=== PATIENT | female | born 1990 | race Caucasian/White ===

== ENCOUNTER 2017-07-26 23:22 | Emergency (ER) | payer MEDICAID ==
[~2017-07-26] VITALS: Ht 175.3 cm; Wt 57.4 kg
[2017-07-26 23:24] VITALS: BP 135/90
[2017-07-27] MEDS ORDERED: SULFAMETH./TRIMETHOPRIM DS 800MG/160MG TABLET ONE (00:11)
[2017-07-27] MEDS ORDERED: ACETAMINOPHEN 325 MG TABLET ONE (00:11)
[2017-07-27] MEDS ORDERED: SULFAMETH./TRIMETHOPRIM DS 800MG/160MG TABLET PO ONE (00:30)
[2017-07-27] MEDS ORDERED: ACETAMINOPHEN 325 MG TABLET PO ONE (00:30)
== END 2017-07-27 00:23 | disposition home or self-care (01) ==
LOC: ED 07-27 00:17
DX: L02.01 Cutaneous abscess of face (principal)
CPT/HCPCS: 99283

== ENCOUNTER 2017-09-28 19:00 | Emergency (ER) | payer MEDICAID ==
[~2017-09-28] VITALS: Ht 162.6 cm; Wt 55.0 kg
[2017-09-28] MEDS ORDERED: NALOXONE 0.4 MG/ML, 1ML ONE (19:19)
[2017-09-28] MEDS ORDERED: SODIUM CHLORIDE FLUSH 10ML SYR IVF ONE (19:30)
[2017-09-28] MEDS ORDERED: NALOXONE 0.4 MG/ML, 1ML IVPush PRN ×2 (19:30→20:00)
[2017-09-29 01:37] VITALS: BP 114/73
== END 2017-09-29 01:39 | disposition home or self-care (01) ==
LOC: ED 22:12
DX: F10.129 Alcohol abuse with intoxication, unspecified (principal); F11.129 Opioid abuse with intoxication, unspecified
CPT/HCPCS: 96374; 99284; J2310

== ENCOUNTER 2017-10-28 01:37 | Emergency (ER) | payer MEDICAID ==
[~2017-10-28] VITALS: Ht 175.3 cm; Wt 55.5 kg
[2017-10-28 01:39] VITALS: BP 121/77
== END 2017-10-28 02:57 | disposition home or self-care (01) ==
LOC: ED 02:55
DX: L02.01 Cutaneous abscess of face (principal); F17.210 Nicotine dependence, cigarettes, uncomplicated
CPT/HCPCS: 99283

== ENCOUNTER 2018-02-12 13:36 | Emergency (ER) | payer SELFPAY ==
[~2018-02-12] VITALS: Ht 180.3 cm; Wt 52.0 kg
[2018-02-12] MEDS ORDERED: LIDOCAINE-MPF 1%, 5ML INFIL ONE (14:00)
[2018-02-12] MEDS ORDERED: AMPICILLIN/SULBACTAM 3 GM in SODIUM CHLORIDE 0.9% 100 ML IV ONE (15:30)
[2018-02-12 15:41] LABS: BASOPHILS # (AUTO) 0.06 x10^3/uL (0-0.1); BASOPHILS % (AUTO) 0 % (0-1); EOSINOPHILS # (AUTO) 0.36 x10^3/uL (0-0.4); EOSINOPHILS % (AUTO) 3 % (1-7); LYMPHOCYTES % (AUTO) 17 % (22-44); MD NO; MEAN CORPUSCULAR HEMOGLOBIN 29.2 pg (27.0-34.8); MEAN CORPUSCULAR HGB CONC 33.4 g/dL (32.4-35.8); MEAN CORPUSCULAR VOLUME 87.6 fL (80-100); MEAN PLATELET VOLUME 7.1 fL (7.4-10.4); MONOCYTES # (AUTO) 0.63 x10^3/uL (0.2-0.8); MONOCYTES % (AUTO) 5 % (2-9); NEUTROPHILS # (AUTO) 9.99 x10^3/uL (1.8-6.8); NEUTROPHILS % (AUTO) 75 % (42-75); PLATELET COUNT 291 x10^3/uL (130-400); RED CELL DISTRIBUTION WIDTH 13.4 % (9.6-15.2)
[2018-02-12 15:52] LABS: ALBUMIN 3.8 g/dL (3.4-5.0); ANION GAP 6 mmol/L (5-15); CALCIUM 9.3 mg/dL (8.5-10.1); CHLORIDE 100 mmol/L (98-107); CREATININE 0.76 mg/dL (0.55-1.02)
[2018-02-12] MEDS ORDERED: LIDOCAINE-MPF 1%, 2ML ONE (17:30)
[2018-02-12 18:17] VITALS: BP 153/91
== END 2018-02-12 18:35 | disposition home or self-care (01) ==
LOC: ED 16:15
DX: L02.01 Cutaneous abscess of face (principal); F17.200 Nicotine dependence, unspecified, uncomplicated
CPT/HCPCS: 36415; 80048; 82040; 85025; 87070; 87077; 87186; 87205; 96365; 99284; J0295

== ENCOUNTER 2018-02-16 04:13 | Emergency (ER) | payer SELFPAY ==
[~2018-02-16] VITALS: Ht 175.3 cm; Wt 53.4 kg
[2018-02-16 04:28] VITALS: BP 133/88
[2018-02-16] MEDS ORDERED: CEFTRIAXONE 1,000 MG ONE (05:08)
[2018-02-16] MEDS ORDERED: CEFTRIAXONE 1,000 MG IM ONE (05:30)
== END 2018-02-16 06:56 | disposition home or self-care (01) ==
LOC: ED 05:42
DX: L02.01 Cutaneous abscess of face (principal)
CPT/HCPCS: 73130; 96372; 99284; J0696

== ENCOUNTER 2018-04-11 23:09 | Inpatient (IN) | payer MEDICAID ==
[~2018-04-11] VITALS: Ht 175.3 cm; Wt 60.8 kg
[2018-04-11] MEDS ORDERED: HYDROmorphone 1 MG/ML, 1ML IV ONE (23:30)
[2018-04-11] MEDS ORDERED: SODIUM CHLORIDE 0.9% 1,000ML IVBOLUS ONE (23:30)
[2018-04-11 23:55] LABS: MEAN CORPUSCULAR HEMOGLOBIN 29.2 pg (27.0-34.8); MEAN CORPUSCULAR HGB CONC 33.6 g/dL (32.4-35.8); MEAN CORPUSCULAR VOLUME 87.1 fL (80-100); MEAN PLATELET VOLUME 7.4 fL (7.4-10.4); PLATELET COUNT 343 x10^3/uL (130-400); RED BLOOD COUNT 3.86 x10^6/uL (3.82-5.3); RED CELL DISTRIBUTION WIDTH 13.7 % (9.6-15.2)
[2018-04-12] MEDS ORDERED: VANCOMYCIN PER PHARMACY IV ONE
[2018-04-12] MEDS ORDERED: PIPERACILLIN/TAZO/PMX 3.375GM 50 ML IVPB ONE
[2018-04-12 00:06] LABS: CULTURE INDICATED? YES; MICROSCOPIC INDICATED
[2018-04-12 00:08] LABS: ALANINE AMINOTRANSFERASE 76 U/L (12-78); ALBUMIN 2.5 g/dL (3.4-5.0); ANION GAP 10 mmol/L (5-15); CHLORIDE 95 mmol/L (98-107); CREATININE 0.56 mg/dL (0.55-1.02)
[2018-04-12 00:09] LABS: ALKALINE PHOSPHATASE 159 U/L (45-117); BASOPHILS # (AUTO) 0.02 x10^3/uL (0-0.1); BASOPHILS % (AUTO) 0 % (0-1); BILIRUBIN,TOTAL 0.7 mg/dL (0.2-1.0); EOSINOPHILS % (AUTO) 0 % (1-7); LYMPHOCYTES # (AUTO) 1.69 x10^3/uL (1-3.4); LYMPHOCYTES % (AUTO) 8 % (22-44); MD SCAN; MONOCYTES # (AUTO) 1.16 x10^3/uL (0.2-0.8); MONOCYTES % (AUTO) 5 % (2-9); NEUTROPHILS # (AUTO) 19.01 x10^3/uL (1.8-6.8); NEUTROPHILS % (AUTO) 87 % (42-75); TOTAL PROTEIN 7.8 g/dL (6.4-8.2)
[2018-04-12] MEDS ORDERED: PIPERACILLIN/TAZO/PMX 3.375GM 50 ML ONE (00:09)
[2018-04-12 00:20] LABS: HCG UR SG 1.026 (1.003-1.030)
[2018-04-12] MEDS ORDERED: HYDROmorphone 2 MG/ML, 1ML ONE ×4 (00:27→03:59)
[2018-04-12] MEDS ORDERED: VANCOMYCIN 1,100 MG in SODIUM CHLORIDE 0.9% 250 ML IV ONE (00:30)
[2018-04-12] MEDS ORDERED: SODIUM CHLORIDE 0.9% 1,000ML IVBOLUS ONE (01:00)
[2018-04-12] MEDS ORDERED: LIDOCAINE-MPF 1%, 5ML INFIL ONE (01:00)
[2018-04-12 01:07] LABS: HCT (SEDRATE) 33.6 % (34.6-47.8)
[2018-04-12] MEDS ORDERED: LIDOCAINE-MPF 2%, 2ML ONE (01:13)
[2018-04-12] MEDS ORDERED: HYDROmorphone 1 MG/ML, 1ML IV ONE ×3 (02:30→04:00)
[2018-04-12] MEDS: SODIUM CHLORIDE 0.9% 1,000 ML IV SCH ×4 (02:55→23:38)
[2018-04-12] MEDS ORDERED: ONDANSETRON ODT 4 MG PO PRN (03:00)
[2018-04-12] MEDS ORDERED: VANCOMYCIN PER PHARMACY MC PRN (03:00)
[2018-04-12] MEDS ORDERED: PROMETHAZINE 25 MG/ML, 1ML IM PRN (03:00)
[2018-04-12] MEDS: HEPARIN 5,000 UNITS/ML, 1ML SQ SCH ×3 (03:00→19:00)
[2018-04-12] MEDS: PIPERACILLIN/TAZO/PMX 3.375GM 50 ML IV SCH ×4 (03:00→20:49)
[2018-04-12] MEDS ORDERED: hydrALAzine 20 MG/ML, 1ML IVPush PRN (03:00)
[2018-04-12] MEDS ORDERED: ONDANSETRON 2MG/ML, 2ML IVPush PRN (03:00)
[2018-04-12] MEDS ORDERED: POLYETHYLENE GLYCOL 17 GM PACKET PO PRN (03:00)
[2018-04-12 04:00] VITALS: BP 110/60
[2018-04-12] MEDS ORDERED: KETOROLAC 30 MG/1 ML ONE (04:04)
[2018-04-12] MEDS ORDERED: KETOROLAC 30 MG/1 ML IVPush ONE (04:30)
[2018-04-12] MEDS ORDERED: GADOBUTROL 7.5 MMOL/7.5 ML PFS ONE (04:48)
[2018-04-12 05:58] VITALS: BP 113/91
[2018-04-12] MEDS ORDERED: PHARMACOKINETIC CONSULTATION MC ONE (06:00)
[2018-04-12] MEDS ORDERED: PHARMACOKINETIC MONITORING MC PRN (06:00)
[2018-04-12 06:34] VITALS: BP 110/60
[2018-04-12] MEDS ORDERED: METHYLENE BLUE 10 MG/ML 10ML ONE (08:25)
[2018-04-12] MEDS ORDERED: methylPREDNISolone *ACETATE* 40 MG/ML ONE (08:25)
[2018-04-12] MEDS ORDERED: BUPIVACAINE/PF-EPI 0.5% 1:200K ONE (08:25)
[2018-04-12] MEDS ORDERED: THROMBIN 5,000 UNIT VIAL TP ONE (08:25)
[2018-04-12] MEDS ORDERED: BACITRACIN OINT 500U/GM, 15 GM ONE (08:25)
[2018-04-12] MEDS ORDERED: BACITRACIN 50,000 UNIT ONE (08:26)
[2018-04-12] MEDS ORDERED: FENTANYL PF 250 MCG/5ML ONE ×2 (08:37→10:01)
[2018-04-12] MEDS ORDERED: MIDAZOLAM 1 MG/ML, 2ML ONE (08:37)
[2018-04-12] MEDS ORDERED: VANCOMYCIN 1,000 MG ONE (09:32)
[2018-04-12] MEDS ORDERED: VASOPRESSIN 20 UNIT/ML, 1ML ONE (10:03)
[2018-04-12] MEDS ORDERED: SUCCINYLCHOLINE 20 MG/ML, 10ML ONE (10:03)
[2018-04-12] MEDS ORDERED: PHENYLEPHRINE 10 MG/ML ONE (10:03)
[2018-04-12] MEDS ORDERED: ROCURONIUM 10MG/ML,5ML ONE (10:03)
[2018-04-12] MEDS ORDERED: LIDOCAINE JELLY 2%, 30GM ONE (10:03)
[2018-04-12] MEDS ORDERED: PROPOFOL 10 MG/ML, 20ML ONE (10:03)
[2018-04-12] MEDS ORDERED: ACETAMINOPHEN 325 MG TABLET PO PRN (12:00)
[2018-04-12] MEDS ORDERED: OXYcodone 5 MG/5 ML ORAL.SOL UDC PO PRN (12:00)
[2018-04-12] MEDS ORDERED: ONDANSETRON 2MG/ML, 2ML IV PRN (12:00)
[2018-04-12] MEDS ORDERED: hydrALAzine 20 MG/ML, 1ML IV PRN (12:00)
[2018-04-12] MEDS ORDERED: FENTANYL PF 100 MCG/2ML IV PRN (12:00)
[2018-04-12] MEDS ORDERED: EPHEDRINE 50 MG/ML, 1ML IVPush PRN (12:00)
[2018-04-12] MEDS ORDERED: ALBUTEROL SULFATE 2.5 MG/3 ML NPPB PRN (12:00)
[2018-04-12] MEDS ORDERED: PROMETHAZINE 25 MG/ML, 1ML IV PRN (12:00)
[2018-04-12] MEDS ORDERED: EPHEDRINE 50 MG/ML, 1ML IM PRN (12:00)
[2018-04-12] MEDS ORDERED: ONDANSETRON ODT 8 MG PO PRN (12:00)
[2018-04-12] MEDS ORDERED: LABETALOL 5MG/ML, 20ML IV PRN (12:00)
[2018-04-12] MEDS ORDERED: HALOPERIDOL 5 MG/ML IV PRN (12:00)
[2018-04-12] MEDS ORDERED: PROMETHAZINE 12.5 MG SUPP PR PRN (12:00)
[2018-04-12] MEDS ORDERED: LORazepam 2 MG/ML, 1ML IVPush PRN (12:00)
[2018-04-12] MEDS ORDERED: HYDROmorphone 2 MG/ML, 1ML IV PRN (12:00)
[2018-04-12] MEDS ORDERED: MEPERIDINE/PF 25MG/0.5ML IVPush PRN (12:00)
[2018-04-12] MEDS ORDERED: MIDAZOLAM 1 MG/ML, 2ML IV PRN (12:00)
[2018-04-12] MEDS: VANCOMYCIN 1,100 MG in SODIUM CHLORIDE 0.9% 250 ML IV SCH (13:31)
[2018-04-12] MEDS: OXYcodone/APAP 5/325MG TABLET PO PRN ×2 (15:38→18:26)
[2018-04-12] MEDS: KETOROLAC 30 MG/1 ML IV PRN (23:37)
[2018-04-12] MEDS: NICOTINE 14MG/24 HR PATCH.TD24 TD SCH (23:41)
[2018-04-13] MEDS: VANCOMYCIN 1,100 MG in SODIUM CHLORIDE 0.9% 250 ML IV SCH (00:36)
[2018-04-13] MEDS: OXYcodone/APAP 5/325MG TABLET PO PRN ×5 (01:51→21:01)
[2018-04-13] MEDS: ACETAMINOPHEN 325 MG TABLET PO PRN ×3 (03:24→19:57)
[2018-04-13] MEDS: HEPARIN 5,000 UNITS/ML, 1ML SQ SCH (03:28)
[2018-04-13] MEDS: PIPERACILLIN/TAZO/PMX 3.375GM 50 ML IV SCH ×2 (03:28→09:17)
[2018-04-13 04:00] VITALS: BP 116/94
[2018-04-13 04:35] LABS: ALANINE AMINOTRANSFERASE 59 U/L (12-78); ALBUMIN 1.8 g/dL (3.4-5.0); ANION GAP 9 mmol/L (5-15); CALCIUM 7.3 mg/dL (8.5-10.1); CHLORIDE 106 mmol/L (98-107); CREATININE 0.51 mg/dL (0.55-1.02)
[2018-04-13 04:37] LABS: ALKALINE PHOSPHATASE 152 U/L (45-117); BILIRUBIN,TOTAL 0.3 mg/dL (0.2-1.0); TOTAL PROTEIN 6.4 g/dL (6.4-8.2)
[2018-04-13 04:44] LABS: MEAN CORPUSCULAR HGB CONC 33.1 g/dL (32.4-35.8); MEAN CORPUSCULAR VOLUME 87.7 fL (80-100); MEAN PLATELET VOLUME 7.4 fL (7.4-10.4); PLATELET COUNT 379 x10^3/uL (130-400); RED BLOOD COUNT 3.48 x10^6/uL (3.82-5.3); RED CELL DISTRIBUTION WIDTH 14.8 % (9.6-15.2)
[2018-04-13] MEDS: KETOROLAC 30 MG/1 ML IV PRN ×3 (05:32→22:11)
[2018-04-13 05:48] LABS: BASOPHILS # (AUTO) 0.03 x10^3/uL (0-0.1); BASOPHILS % (AUTO) 0 % (0-1); EOSINOPHILS % (AUTO) 0 % (1-7); LYMPHOCYTES # (AUTO) 1.77 x10^3/uL (1-3.4); LYMPHOCYTES % (AUTO) 9 % (22-44); MD SCAN; MONOCYTES # (AUTO) 0.98 x10^3/uL (0.2-0.8); MONOCYTES % (AUTO) 5 % (2-9); NEUTROPHILS % (AUTO) 86 % (42-75)
[2018-04-13] MEDS: SODIUM CHLORIDE 0.9% 1,000 ML IV SCH ×2 (10:27→18:32)
[2018-04-13] MEDS: TIZANIDINE 4MG TABLET PO PRN ×2 (10:28→18:32)
[2018-04-13] MEDS: CEFAZOLIN PMX 2GM/50ML 50 ML IV SCH ×2 (12:22→19:57)
[2018-04-14] MEDS: NICOTINE 14MG/24 HR PATCH.TD24 TD SCH (00:24)
[2018-04-14] MEDS: TIZANIDINE 4MG TABLET PO PRN ×3 (00:25→20:15)
[2018-04-14] MEDS: OXYcodone/APAP 5/325MG TABLET PO PRN ×2 (01:40→06:05)
[2018-04-14] MEDS: CEFAZOLIN PMX 2GM/50ML 50 ML IV SCH ×3 (03:03→20:06)
[2018-04-14] MEDS: SODIUM CHLORIDE 0.9% 1,000 ML IV SCH (03:03)
[2018-04-14] MEDS: KETOROLAC 30 MG/1 ML IV PRN ×2 (04:21→11:49)
[2018-04-14] MEDS ORDERED: LORazepam 0.5MG TABLET PO ONE ×2 (04:30→06:00)
[2018-04-14 04:44] LABS: HCT (SEDRATE) 29.7 % (34.6-47.8)
[2018-04-14 04:55] LABS: ALANINE AMINOTRANSFERASE 46 U/L (12-78); ALBUMIN 1.7 g/dL (3.4-5.0); ANION GAP 8 mmol/L (5-15); CALCIUM 7.6 mg/dL (8.5-10.1); CHLORIDE 105 mmol/L (98-107); CREATININE 0.45 mg/dL (0.55-1.02)
[2018-04-14 04:56] LABS: BASOPHILS # (AUTO) 0.02 x10^3/uL (0-0.1); BASOPHILS % (AUTO) 0 % (0-1); EOSINOPHILS # (AUTO) 0.09 x10^3/uL (0-0.4); EOSINOPHILS % (AUTO) 1 % (1-7); LYMPHOCYTES # (AUTO) 3.08 x10^3/uL (1-3.4); LYMPHOCYTES % (AUTO) 24 % (22-44); MD NO; MEAN CORPUSCULAR HEMOGLOBIN 28.6 pg (27.0-34.8); MEAN CORPUSCULAR HGB CONC 32.9 g/dL (32.4-35.8); MEAN CORPUSCULAR VOLUME 86.8 fL (80-100); MONOCYTES % (AUTO) 6 % (2-9); NEUTROPHILS # (AUTO) 9.08 x10^3/uL (1.8-6.8); NEUTROPHILS % (AUTO) 70 % (42-75); PLATELET COUNT 395 x10^3/uL (130-400); RED BLOOD COUNT 3.41 x10^6/uL (3.82-5.3); RED CELL DISTRIBUTION WIDTH 14.4 % (9.6-15.2)
[2018-04-14 05:02] LABS: ALKALINE PHOSPHATASE 113 U/L (45-117); BILIRUBIN,TOTAL 0.1 mg/dL (0.2-1.0); TOTAL PROTEIN 6.1 g/dL (6.4-8.2)
[2018-04-14 06:37] VITALS: BP 137/74
[2018-04-14] MEDS: OXYcodone IR 5MG TABLET PO PRN ×4 (09:44→23:03)
[2018-04-14 10:42] VITALS: BP 133/79
[2018-04-14 19:36] VITALS: BP 139/84
[2018-04-15] MEDS: KETOROLAC 30 MG/1 ML IV PRN ×4 (00:14→21:10)
[2018-04-15] MEDS: TIZANIDINE 4MG TABLET PO PRN ×4 (01:42→21:26)
[2018-04-15] MEDS: NICOTINE 14MG/24 HR PATCH.TD24 TD SCH (01:42)
[2018-04-15 03:06] VITALS: BP 132/77
[2018-04-15] MEDS: CEFAZOLIN PMX 2GM/50ML 50 ML IV SCH ×3 (04:22→20:32)
[2018-04-15] MEDS: OXYcodone IR 5MG TABLET PO PRN ×5 (04:22→21:27)
[2018-04-15 05:43] LABS: BASOPHILS # (AUTO) 0.05 x10^3/uL (0-0.1); BASOPHILS % (AUTO) 0 % (0-1); EOSINOPHILS # (AUTO) 0.12 x10^3/uL (0-0.4); EOSINOPHILS % (AUTO) 1 % (1-7); LYMPHOCYTES # (AUTO) 3.58 x10^3/uL (1-3.4); LYMPHOCYTES % (AUTO) 25 % (22-44); MD NO; MEAN CORPUSCULAR HEMOGLOBIN 29.4 pg (27.0-34.8); MEAN CORPUSCULAR VOLUME 86.6 fL (80-100); MEAN PLATELET VOLUME 6.6 fL (7.4-10.4); MONOCYTES # (AUTO) 1.06 x10^3/uL (0.2-0.8); MONOCYTES % (AUTO) 7 % (2-9); NEUTROPHILS # (AUTO) 9.46 x10^3/uL (1.8-6.8); NEUTROPHILS % (AUTO) 66 % (42-75); PLATELET COUNT 484 x10^3/uL (130-400); RED BLOOD COUNT 3.77 x10^6/uL (3.82-5.3)
[2018-04-15 08:00] VITALS: BP 150/89
[2018-04-15] MEDS: METHADONE 10 MG TABLET PO SCH ×3 (14:20→22:35)
[2018-04-15 15:02] VITALS: BP 151/71
[2018-04-15 20:05] VITALS: BP 121/71
[2018-04-16] MEDS: NICOTINE 14MG/24 HR PATCH.TD24 TD SCH (01:57)
[2018-04-16 01:58] VITALS: BP 114/70
[2018-04-16] MEDS: OXYcodone IR 5MG TABLET PO PRN ×3 (02:04→14:23)
[2018-04-16] MEDS: CEFAZOLIN PMX 2GM/50ML 50 ML IV SCH ×3 (04:07→22:01)
[2018-04-16] MEDS: KETOROLAC 30 MG/1 ML IV PRN ×3 (05:34→18:05)
[2018-04-16] MEDS: TIZANIDINE 4MG TABLET PO PRN ×3 (05:34→18:05)
[2018-04-16 08:53] VITALS: BP 99/70
[2018-04-16] MEDS: METHADONE 10 MG TABLET PO SCH ×3 (09:36→22:01)
[2018-04-16 14:51] VITALS: BP 107/64
[2018-04-16 19:24] VITALS: BP 113/70
[2018-04-17] MEDS: NICOTINE 14MG/24 HR PATCH.TD24 TD SCH (01:36)
[2018-04-17 02:30] VITALS: BP 120/86
[2018-04-17 05:03] LABS: CHLORIDE 100 mmol/L (98-107)
[2018-04-17] MEDS: TIZANIDINE 4MG TABLET PO PRN ×3 (05:05→18:48)
[2018-04-17] MEDS: OXYcodone IR 5MG TABLET PO PRN ×3 (05:05→18:48)
[2018-04-17 05:11] LABS: ALANINE AMINOTRANSFERASE 60 U/L (12-78); ALKALINE PHOSPHATASE 117 U/L (45-117); ANION GAP 8 mmol/L (5-15); BILIRUBIN,TOTAL 0.2 mg/dL (0.2-1.0); CALCIUM 8.4 mg/dL (8.5-10.1); CREATININE 0.54 mg/dL (0.55-1.02); TOTAL PROTEIN 7.5 g/dL (6.4-8.2)
[2018-04-17 05:16] LABS: BASOPHILS # (AUTO) 0.06 x10^3/uL (0-0.1); BASOPHILS % (AUTO) 0 % (0-1); EOSINOPHILS # (AUTO) 0.44 x10^3/uL (0-0.4); EOSINOPHILS % (AUTO) 3 % (1-7); LYMPHOCYTES # (AUTO) 3.63 x10^3/uL (1-3.4); LYMPHOCYTES % (AUTO) 25 % (22-44); MD NO; MEAN CORPUSCULAR HEMOGLOBIN 28.3 pg (27.0-34.8); MEAN CORPUSCULAR HGB CONC 32.8 g/dL (32.4-35.8); MEAN CORPUSCULAR VOLUME 86.3 fL (80-100); MEAN PLATELET VOLUME 6.6 fL (7.4-10.4); MONOCYTES # (AUTO) 0.79 x10^3/uL (0.2-0.8); MONOCYTES % (AUTO) 5 % (2-9); NEUTROPHILS # (AUTO) 9.67 x10^3/uL (1.8-6.8); NEUTROPHILS % (AUTO) 66 % (42-75); PLATELET COUNT 599 x10^3/uL (130-400); RED BLOOD COUNT 3.81 x10^6/uL (3.82-5.3); RED CELL DISTRIBUTION WIDTH 14.6 % (9.6-15.2)
[2018-04-17] MEDS: CEFAZOLIN PMX 2GM/50ML 50 ML IV SCH ×2 (05:57→18:48)
[2018-04-17 08:00] VITALS: BP 142/85
[2018-04-17] MEDS: METHADONE 10 MG TABLET PO SCH ×3 (09:13→22:17)
[2018-04-17 20:01] VITALS: BP 131/80
[2018-04-17] MEDS: ACETAMINOPHEN 325 MG TABLET PO PRN (22:17)
[2018-04-18 01:13] VITALS: BP 110/70
[2018-04-18] MEDS: NICOTINE 14MG/24 HR PATCH.TD24 TD SCH (01:14)
[2018-04-18] MEDS: TIZANIDINE 4MG TABLET PO PRN ×3 (01:39→17:48)
[2018-04-18] MEDS: OXYcodone IR 5MG TABLET PO PRN ×4 (01:40→21:58)
[2018-04-18] MEDS: CEFAZOLIN PMX 2GM/50ML 50 ML IV SCH ×3 (03:15→18:34)
[2018-04-18 08:30] VITALS: BP 131/78
[2018-04-18] MEDS: METHADONE 10 MG TABLET PO SCH ×3 (08:49→20:40)
[2018-04-18 12:31] LABS: HCG UR SG 1.014 (1.003-1.030)
[2018-04-18] MEDS ORDERED: FENTANYL PF 250 MCG/5ML ONE (12:43)
[2018-04-18] MEDS ORDERED: MIDAZOLAM 1 MG/ML, 2ML ONE (12:43)
[2018-04-18] MEDS ORDERED: PROPOFOL 10 MG/ML, 20ML ONE (13:56)
[2018-04-18 14:30] VITALS: BP 111/76
[2018-04-18] MEDS ORDERED: MEPERIDINE/PF 50 MG/ML ONE (14:47)
[2018-04-18] MEDS ORDERED: FENTANYL PF 100 MCG/2ML ONE (14:47)
[2018-04-18] MEDS ORDERED: HYDROmorphone 2 MG/ML, 1ML ONE (14:48)
[2018-04-18] MEDS ORDERED: OXYcodone 5 MG/5 ML ORAL.SOL UDC ONE (14:48)
[2018-04-18] MEDS: HYDROmorphone 1 MG/ML, 1ML IV PRN ×2 (14:57→15:26)
[2018-04-18] MEDS ORDERED: LORazepam 2 MG/ML, 1ML IVPush PRN (15:00)
[2018-04-18] MEDS ORDERED: HALOPERIDOL 5 MG/ML IV PRN (15:00)
[2018-04-18] MEDS ORDERED: OXYcodone 5 MG/5 ML ORAL.SOL UDC PO PRN (15:00)
[2018-04-18] MEDS ORDERED: FENTANYL PF 100 MCG/2ML IV PRN (15:00)
[2018-04-18] MEDS ORDERED: MEPERIDINE/PF 25MG/0.5ML IVPush PRN (15:00)
[2018-04-18] MEDS ORDERED: PROMETHAZINE 25 MG/ML, 1ML IV PRN (15:00)
[2018-04-18] MEDS ORDERED: HALOPERIDOL 5 MG/ML ONE (15:29)
[2018-04-18 20:00] VITALS: BP 116/62
[2018-04-18] MEDS: KETOROLAC 30 MG/1 ML IVPush PRN (20:40)
[2018-04-19] MEDS: NICOTINE 14MG/24 HR PATCH.TD24 TD SCH (00:53)
[2018-04-19] MEDS: TIZANIDINE 4MG TABLET PO PRN (00:53)
[2018-04-19 01:05] VITALS: BP 119/65
[2018-04-19] MEDS: OXYcodone IR 5MG TABLET PO PRN ×5 (02:19→19:58)
[2018-04-19] MEDS: CEFAZOLIN PMX 2GM/50ML 50 ML IV SCH ×3 (03:55→19:58)
[2018-04-19] MEDS: KETOROLAC 30 MG/1 ML IVPush PRN ×3 (08:15→21:54)
[2018-04-19 08:35] VITALS: BP 106/72
[2018-04-19] MEDS: METHADONE 10 MG TABLET PO SCH ×3 (09:09→21:11)
[2018-04-19] MEDS: CYCLOBENZAPRINE 10 MG TABLET PO PRN ×2 (11:45→17:31)
[2018-04-19 12:20] VITALS: BP 104/64
[2018-04-19 20:33] VITALS: BP 121/67
[2018-04-20] MEDS: OXYcodone IR 5MG TABLET PO PRN ×3 (00:05→14:14)
[2018-04-20] MEDS: NICOTINE 14MG/24 HR PATCH.TD24 TD SCH (00:05)
[2018-04-20] MEDS: CYCLOBENZAPRINE 10 MG TABLET PO PRN ×2 (01:49→17:55)
[2018-04-20 01:51] VITALS: BP 111/70
[2018-04-20] MEDS: KETOROLAC 30 MG/1 ML IVPush PRN ×2 (03:50→11:52)
[2018-04-20] MEDS: CEFAZOLIN PMX 2GM/50ML 50 ML IV SCH ×3 (03:50→20:14)
[2018-04-20 07:59] VITALS: BP 100/57
[2018-04-20] MEDS: METHADONE 10 MG TABLET PO SCH ×3 (09:26→22:00)
[2018-04-20 13:30] VITALS: BP 109/63
[2018-04-20 21:33] VITALS: BP 113/73
[2018-04-21 02:57] VITALS: BP 113/68
[2018-04-21] MEDS: OXYcodone IR 5MG TABLET PO PRN ×4 (03:05→18:29)
[2018-04-21] MEDS: KETOROLAC 30 MG/1 ML IVPush PRN ×3 (03:38→19:29)
[2018-04-21] MEDS: CEFAZOLIN PMX 2GM/50ML 50 ML IV SCH ×3 (04:35→20:27)
[2018-04-21] MEDS: NICOTINE 14MG/24 HR PATCH.TD24 TD SCH (04:36)
[2018-04-21 05:37] LABS: BASOPHILS # (AUTO) 0.03 x10^3/uL (0-0.1); BASOPHILS % (AUTO) 0 % (0-1); EOSINOPHILS # (AUTO) 0.17 x10^3/uL (0-0.4); EOSINOPHILS % (AUTO) 2 % (1-7); LYMPHOCYTES # (AUTO) 3.32 x10^3/uL (1-3.4); LYMPHOCYTES % (AUTO) 33 % (22-44); MD NO; MEAN CORPUSCULAR HEMOGLOBIN 29.4 pg (27.0-34.8); MEAN CORPUSCULAR VOLUME 86.6 fL (80-100); MEAN PLATELET VOLUME 6.5 fL (7.4-10.4); MONOCYTES # (AUTO) 0.77 x10^3/uL (0.2-0.8); MONOCYTES % (AUTO) 8 % (2-9); NEUTROPHILS % (AUTO) 58 % (42-75); PLATELET COUNT 613 x10^3/uL (130-400); RED BLOOD COUNT 3.26 x10^6/uL (3.82-5.3); RED CELL DISTRIBUTION WIDTH 14.3 % (9.6-15.2)
[2018-04-21 05:42] LABS: CHLORIDE 96 mmol/L (98-107)
[2018-04-21 05:43] LABS: HCT (SEDRATE) 28.2 % (34.6-47.8)
[2018-04-21 05:54] LABS: ALANINE AMINOTRANSFERASE 68 U/L (12-78); ALBUMIN 2.1 g/dL (3.4-5.0); ALKALINE PHOSPHATASE 129 U/L (45-117); ANION GAP 6 mmol/L (5-15); BILIRUBIN,TOTAL 0.2 mg/dL (0.2-1.0); CALCIUM 8.6 mg/dL (8.5-10.1); TOTAL PROTEIN 7.7 g/dL (6.4-8.2)
[2018-04-21 06:03] LABS: SEDIMENTATION RATE > 120 mm/hr (0-20)
[2018-04-21 08:40] VITALS: BP 127/77
[2018-04-21] MEDS: METHADONE 10 MG TABLET PO SCH ×3 (08:56→20:28)
[2018-04-21] MEDS: CYCLOBENZAPRINE 10 MG TABLET PO PRN ×2 (12:19→20:27)
[2018-04-21 13:35] VITALS: BP 113/72
[2018-04-21] MEDS: GABAPENTIN 300 MG CAPSULE PO SCH ×2 (16:26→20:28)
[2018-04-21] MEDS: METHOCARBAMOL 750 MG TABLET PO PRN (18:29)
[2018-04-21 19:01] VITALS: BP 118/75
[2018-04-22 01:52] VITALS: BP 118/77
[2018-04-22] MEDS: OXYcodone IR 5MG TABLET PO PRN ×4 (02:08→17:14)
[2018-04-22] MEDS: CEFAZOLIN PMX 2GM/50ML 50 ML IV SCH ×3 (03:19→21:12)
[2018-04-22] MEDS: METHOCARBAMOL 750 MG TABLET PO PRN ×2 (03:19→14:22)
[2018-04-22] MEDS: NICOTINE 14MG/24 HR PATCH.TD24 TD SCH (06:24)
[2018-04-22 08:40] LABS: ALANINE AMINOTRANSFERASE 55 U/L (12-78); ALBUMIN 2.2 g/dL (3.4-5.0); ANION GAP 7 mmol/L (5-15); CALCIUM 8.9 mg/dL (8.5-10.1); CHLORIDE 96 mmol/L (98-107); CREATININE 0.59 mg/dL (0.55-1.02)
[2018-04-22 08:42] LABS: ALKALINE PHOSPHATASE 124 U/L (45-117); BILIRUBIN,TOTAL 0.3 mg/dL (0.2-1.0); TOTAL PROTEIN 8.1 g/dL (6.4-8.2)
[2018-04-22] MEDS: METHADONE 10 MG TABLET PO SCH ×3 (08:43→21:12)
[2018-04-22] MEDS: GABAPENTIN 300 MG CAPSULE PO SCH ×3 (08:43→21:12)
[2018-04-22 08:45] VITALS: BP 135/76
[2018-04-22 14:26] VITALS: BP 106/70
[2018-04-22] MEDS: KETOROLAC 30 MG/1 ML IVPush PRN (15:11)
[2018-04-22] MEDS: CYCLOBENZAPRINE 10 MG TABLET PO PRN (18:16)
[2018-04-22 20:41] VITALS: BP 119/72
[2018-04-23 03:15] VITALS: BP 115/66
[2018-04-23] MEDS: CEFAZOLIN PMX 2GM/50ML 50 ML IV SCH ×3 (04:18→20:40)
[2018-04-23] MEDS: NICOTINE 14MG/24 HR PATCH.TD24 TD SCH (04:18)
[2018-04-23] MEDS: OXYcodone IR 5MG TABLET PO PRN ×3 (04:18→18:14)
[2018-04-23 08:57] VITALS: BP 107/71
[2018-04-23] MEDS: METHADONE 10 MG TABLET PO SCH ×3 (09:34→20:40)
[2018-04-23] MEDS: GABAPENTIN 300 MG CAPSULE PO SCH ×3 (09:34→20:40)
[2018-04-23] MEDS: METHOCARBAMOL 750 MG TABLET PO PRN (09:44)
[2018-04-23] MEDS: KETOROLAC 30 MG/1 ML IVPush PRN (12:50)
[2018-04-23 14:26] VITALS: BP 107/65
[2018-04-23] MEDS: CYCLOBENZAPRINE 10 MG TABLET PO PRN (16:18)
[2018-04-23 19:26] VITALS: BP 118/67
[2018-04-24 02:07] VITALS: BP 100/70
[2018-04-24] MEDS: CYCLOBENZAPRINE 10 MG TABLET PO PRN ×2 (03:16→11:33)
[2018-04-24] MEDS: OXYcodone IR 5MG TABLET PO PRN ×3 (03:16→14:56)
[2018-04-24] MEDS: CEFAZOLIN PMX 2GM/50ML 50 ML IV SCH ×3 (04:22→20:02)
[2018-04-24] MEDS: IBUPROFEN 200 MG TABLET PO PRN (04:22)
[2018-04-24] MEDS: METHOCARBAMOL 750 MG TABLET PO PRN ×2 (04:22→14:56)
[2018-04-24] MEDS: NICOTINE 14MG/24 HR PATCH.TD24 TD SCH (04:23)
[2018-04-24 06:40] VITALS: BP 125/78
[2018-04-24] MEDS: GABAPENTIN 300 MG CAPSULE PO SCH ×3 (09:24→20:02)
[2018-04-24] MEDS: METHADONE 10 MG TABLET PO SCH ×3 (09:24→20:02)
[2018-04-24 15:54] VITALS: BP 132/84
[2018-04-24 19:27] VITALS: BP 117/69
[2018-04-25 01:30] VITALS: BP 124/76
[2018-04-25] MEDS: CEFAZOLIN PMX 2GM/50ML 50 ML IV SCH ×3 (04:19→21:07)
[2018-04-25] MEDS: NICOTINE 14MG/24 HR PATCH.TD24 TD SCH (04:59)
[2018-04-25 08:00] VITALS: BP 104/63
[2018-04-25] MEDS: GABAPENTIN 300 MG CAPSULE PO SCH ×3 (09:45→21:08)
[2018-04-25] MEDS: METHADONE 10 MG TABLET PO SCH ×3 (09:45→21:08)
[2018-04-25] MEDS: CYCLOBENZAPRINE 10 MG TABLET PO PRN ×2 (09:45→17:52)
[2018-04-25] MEDS: METHOCARBAMOL 750 MG TABLET PO PRN (11:52)
[2018-04-25] MEDS: OXYcodone IR 5MG TABLET PO PRN ×3 (11:53→22:11)
[2018-04-25 14:00] VITALS: BP 105/71
[2018-04-25 20:05] VITALS: BP 109/72
[2018-04-26] MEDS: METHOCARBAMOL 750 MG TABLET PO PRN ×2 (00:04→17:53)
[2018-04-26 01:37] VITALS: BP 133/77
[2018-04-26] MEDS: CYCLOBENZAPRINE 10 MG TABLET PO PRN ×3 (02:01→13:31)
[2018-04-26] MEDS: NICOTINE 14MG/24 HR PATCH.TD24 TD SCH (04:28)
[2018-04-26] MEDS: OXYcodone IR 5MG TABLET PO PRN ×4 (04:28→20:32)
[2018-04-26] MEDS: CEFAZOLIN PMX 2GM/50ML 50 ML IV SCH ×3 (04:28→22:00)
[2018-04-26 08:00] VITALS: BP 104/67
[2018-04-26] MEDS: METHADONE 10 MG TABLET PO SCH ×3 (09:54→22:00)
[2018-04-26] MEDS: GABAPENTIN 300 MG CAPSULE PO SCH ×3 (09:54→22:00)
[2018-04-26 14:00] VITALS: BP 107/64
[2018-04-26 20:31] VITALS: BP 106/68
[2018-04-27 00:48] VITALS: BP 94/60
[2018-04-27] MEDS: OXYcodone IR 5MG TABLET PO PRN ×2 (06:05→19:18)
[2018-04-27] MEDS: CEFAZOLIN PMX 2GM/50ML 50 ML IV SCH ×3 (06:05→22:05)
[2018-04-27] MEDS: NICOTINE 14MG/24 HR PATCH.TD24 TD SCH (06:08)
[2018-04-27 08:00] VITALS: BP 103/66
[2018-04-27] MEDS: METHADONE 10 MG TABLET PO SCH ×3 (10:22→20:31)
[2018-04-27] MEDS: GABAPENTIN 300 MG CAPSULE PO SCH ×3 (10:22→20:31)
[2018-04-27 13:39] VITALS: BP 110/71
[2018-04-27 19:05] VITALS: BP 95/62
[2018-04-28] MEDS: OXYcodone IR 5MG TABLET PO PRN ×2 (02:25→14:14)
[2018-04-28 03:27] VITALS: BP 106/72
[2018-04-28] MEDS: NICOTINE 14MG/24 HR PATCH.TD24 TD SCH (04:56)
[2018-04-28] MEDS: CEFAZOLIN PMX 2GM/50ML 50 ML IV SCH ×3 (05:49→21:04)
[2018-04-28 06:07] LABS: BASOPHILS # (AUTO) 0.06 x10^3/uL (0-0.1); BASOPHILS % (AUTO) 1 % (0-1); EOSINOPHILS # (AUTO) 0.18 x10^3/uL (0-0.4); EOSINOPHILS % (AUTO) 3 % (1-7); LYMPHOCYTES # (AUTO) 3.17 x10^3/uL (1-3.4); LYMPHOCYTES % (AUTO) 45 % (22-44); MD NO; MEAN CORPUSCULAR HEMOGLOBIN 28.4 pg (27.0-34.8); MEAN CORPUSCULAR HGB CONC 33.2 g/dL (32.4-35.8); MEAN CORPUSCULAR VOLUME 85.4 fL (80-100); MEAN PLATELET VOLUME 6.7 fL (7.4-10.4); MONOCYTES # (AUTO) 0.69 x10^3/uL (0.2-0.8); MONOCYTES % (AUTO) 10 % (2-9); NEUTROPHILS # (AUTO) 2.91 x10^3/uL (1.8-6.8); NEUTROPHILS % (AUTO) 42 % (42-75); PLATELET COUNT 543 x10^3/uL (130-400); RED BLOOD COUNT 3.29 x10^6/uL (3.82-5.3); RED CELL DISTRIBUTION WIDTH 14.8 % (9.6-15.2)
[2018-04-28 06:11] LABS: CHLORIDE 102 mmol/L (98-107)
[2018-04-28 06:12] LABS: HCT (SEDRATE) 28.1 % (34.6-47.8)
[2018-04-28 06:26] LABS: ALANINE AMINOTRANSFERASE 28 U/L (12-78); ALBUMIN 2.1 g/dL (3.4-5.0); ALKALINE PHOSPHATASE 109 U/L (45-117); ANION GAP 8 mmol/L (5-15); BILIRUBIN,TOTAL 0.2 mg/dL (0.2-1.0); CALCIUM 8.9 mg/dL (8.5-10.1); CREATININE 0.53 mg/dL (0.55-1.02); TOTAL PROTEIN 8.1 g/dL (6.4-8.2)
[2018-04-28 06:36] LABS: SEDIMENTATION RATE > 120 mm/hr (0-20)
[2018-04-28 07:31] VITALS: BP 133/84
[2018-04-28] MEDS: GABAPENTIN 300 MG CAPSULE PO SCH ×3 (08:47→21:04)
[2018-04-28] MEDS: METHADONE 10 MG TABLET PO SCH ×3 (08:47→21:04)
[2018-04-28 12:16] VITALS: BP 106/69
[2018-04-28] MEDS: CYCLOBENZAPRINE 10 MG TABLET PO PRN (18:02)
[2018-04-28 19:42] VITALS: BP 109/72
[2018-04-28] MEDS: METHOCARBAMOL 750 MG TABLET PO PRN (21:04)
[2018-04-29] MEDS: OXYcodone IR 5MG TABLET PO PRN ×4 (00:40→20:01)
[2018-04-29 00:41] VITALS: BP 102/56
[2018-04-29] MEDS: CEFAZOLIN PMX 2GM/50ML 50 ML IV SCH ×3 (05:28→21:16)
[2018-04-29] MEDS: NICOTINE 14MG/24 HR PATCH.TD24 TD SCH (05:29)
[2018-04-29 07:14] VITALS: BP 99/66
[2018-04-29] MEDS: METHADONE 10 MG TABLET PO SCH ×3 (08:28→21:16)
[2018-04-29] MEDS: GABAPENTIN 300 MG CAPSULE PO SCH ×3 (08:28→21:16)
[2018-04-29] MEDS: METHOCARBAMOL 750 MG TABLET PO PRN ×2 (11:38→21:16)
[2018-04-29 14:00] VITALS: BP 113/73
[2018-04-29 19:49] VITALS: BP 106/69
[2018-04-30 02:00] VITALS: BP 95/63
[2018-04-30] MEDS: CEFAZOLIN PMX 2GM/50ML 50 ML IV SCH ×4 (03:51→21:06)
[2018-04-30] MEDS: METHOCARBAMOL 750 MG TABLET PO PRN ×2 (03:51→22:39)
[2018-04-30] MEDS: OXYcodone IR 5MG TABLET PO PRN ×4 (03:51→23:14)
[2018-04-30 08:06] VITALS: BP 105/65
[2018-04-30] MEDS: METHADONE 10 MG TABLET PO SCH ×3 (08:53→21:06)
[2018-04-30] MEDS: GABAPENTIN 300 MG CAPSULE PO SCH ×3 (08:54→21:06)
[2018-04-30] MEDS: NICOTINE 14MG/24 HR PATCH.TD24 TD SCH (08:54)
[2018-04-30 13:20] VITALS: BP 113/80
[2018-04-30] MEDS: CYCLOBENZAPRINE 10 MG TABLET PO PRN (16:47)
[2018-04-30 18:53] VITALS: BP 92/56
[2018-05-01 02:36] VITALS: BP 118/70
[2018-05-01] MEDS: OXYcodone IR 5MG TABLET PO PRN ×4 (05:02→23:06)
[2018-05-01] MEDS: CEFAZOLIN PMX 2GM/50ML 50 ML IV SCH ×3 (05:02→23:06)
[2018-05-01] MEDS: NICOTINE 14MG/24 HR PATCH.TD24 TD SCH (09:20)
[2018-05-01] MEDS: METHOCARBAMOL 750 MG TABLET PO PRN ×2 (09:20→18:35)
[2018-05-01] MEDS: GABAPENTIN 300 MG CAPSULE PO SCH ×3 (09:20→20:57)
[2018-05-01] MEDS: METHADONE 10 MG TABLET PO SCH ×3 (09:20→20:57)
[2018-05-01 09:43] VITALS: BP 112/71
[2018-05-01] MEDS: IBUPROFEN 200 MG TABLET PO PRN (11:10)
[2018-05-01] MEDS: CYCLOBENZAPRINE 10 MG TABLET PO PRN (13:48)
[2018-05-01 15:38] VITALS: BP 101/64
[2018-05-01 19:05] VITALS: BP 103/63
[2018-05-02 01:10] VITALS: BP 108/70
[2018-05-02] MEDS: METHADONE 10 MG TABLET PO SCH ×2 (07:25→17:18)
[2018-05-02] MEDS: GABAPENTIN 300 MG CAPSULE PO SCH ×3 (07:25→21:53)
[2018-05-02] MEDS: METHOCARBAMOL 750 MG TABLET PO PRN (07:25)
[2018-05-02] MEDS: CEFAZOLIN PMX 2GM/50ML 50 ML IV SCH ×3 (07:25→23:46)
[2018-05-02] MEDS: NICOTINE 14MG/24 HR PATCH.TD24 TD SCH (07:26)
[2018-05-02 08:27] VITALS: BP 111/70
[2018-05-02] MEDS: IBUPROFEN 200 MG TABLET PO PRN (11:12)
[2018-05-02] MEDS: OXYcodone IR 5MG TABLET PO PRN ×2 (11:12→22:06)
[2018-05-02 13:16] VITALS: BP 131/76
[2018-05-02] MEDS: CYCLOBENZAPRINE 10 MG TABLET PO PRN ×2 (15:11→23:45)
[2018-05-02 19:36] VITALS: BP 109/65
[2018-05-03 00:10] VITALS: BP 114/70
[2018-05-03] MEDS: METHADONE 10 MG TABLET PO SCH ×4 (01:03→21:13)
[2018-05-03] MEDS: OXYcodone IR 5MG TABLET PO PRN ×3 (04:55→19:30)
[2018-05-03 06:59] VITALS: BP 94/55
[2018-05-03] MEDS: IBUPROFEN 200 MG TABLET PO PRN (07:59)
[2018-05-03] MEDS: GABAPENTIN 300 MG CAPSULE PO SCH ×3 (07:59→21:00)
[2018-05-03] MEDS: CEFAZOLIN PMX 2GM/50ML 50 ML IV SCH ×2 (08:00→16:37)
[2018-05-03] MEDS: NICOTINE 14MG/24 HR PATCH.TD24 TD SCH (08:01)
[2018-05-03 08:09] VITALS: BP 110/71
[2018-05-03 09:01] LABS: AMPHETAMINE SCREEN, URINE Negative (Negative); BARBITURATE SCREEN, URINE Negative (Negative); BENZODIAZEPINE SCREEN, URINE Negative (Negative); CANNABINOID SCREEN, URINE Negative (Negative); COCAINE SCREEN, URINE Negative (Negative); METHADONE SCREEN, URINE Positive (Negative); OPIATE SCREEN, URINE Positive (Negative)
[2018-05-03 13:37] VITALS: BP 91/60
[2018-05-03] MEDS: METHOCARBAMOL 750 MG TABLET PO PRN (14:52)
[2018-05-03] MEDS: CYCLOBENZAPRINE 10 MG TABLET PO PRN (18:43)
[2018-05-03 20:10] VITALS: BP 130/84
[2018-05-03] MEDS ORDERED: GABAPENTIN 100 MG CAPSULE ONE (21:08)
[2018-05-04] MEDS: CEFAZOLIN PMX 2GM/50ML 50 ML IV SCH ×3 (00:57→16:59)
[2018-05-04] MEDS: OXYcodone IR 5MG TABLET PO PRN ×3 (01:00→19:37)
[2018-05-04 01:03] VITALS: BP 111/75
[2018-05-04 07:01] VITALS: BP 98/63
[2018-05-04] MEDS: METHADONE 10 MG TABLET PO SCH ×3 (09:00→21:16)
[2018-05-04] MEDS: GABAPENTIN 300 MG CAPSULE PO SCH ×3 (09:01→21:16)
[2018-05-04] MEDS: NICOTINE 14MG/24 HR PATCH.TD24 TD SCH (09:01)
[2018-05-04] MEDS: METHOCARBAMOL 750 MG TABLET PO PRN ×2 (09:05→19:37)
[2018-05-04] MEDS: CYCLOBENZAPRINE 10 MG TABLET PO PRN ×2 (11:07→21:16)
[2018-05-04 13:12] VITALS: BP 98/63
[2018-05-04 20:19] VITALS: BP 110/66
[2018-05-05] MEDS: CEFAZOLIN PMX 2GM/50ML 50 ML IV SCH ×3 (01:06→17:00)
[2018-05-05 03:06] VITALS: BP 121/72
[2018-05-05] MEDS: METHOCARBAMOL 750 MG TABLET PO PRN ×3 (03:39→21:23)
[2018-05-05] MEDS: OXYcodone IR 5MG TABLET PO PRN ×4 (03:40→21:23)
[2018-05-05 05:28] LABS: BASOPHILS # (AUTO) 0.05 x10^3/uL (0-0.1); BASOPHILS % (AUTO) 1 % (0-1); EOSINOPHILS # (AUTO) 0.33 x10^3/uL (0-0.4); EOSINOPHILS % (AUTO) 4 % (1-7); LYMPHOCYTES # (AUTO) 2.88 x10^3/uL (1-3.4); LYMPHOCYTES % (AUTO) 38 % (22-44); MD NO; MEAN CORPUSCULAR HEMOGLOBIN 27.8 pg (27.0-34.8); MEAN CORPUSCULAR HGB CONC 33.4 g/dL (32.4-35.8); MEAN CORPUSCULAR VOLUME 83.4 fL (80-100); MEAN PLATELET VOLUME 6.7 fL (7.4-10.4); MONOCYTES # (AUTO) 0.68 x10^3/uL (0.2-0.8); MONOCYTES % (AUTO) 9 % (2-9); NEUTROPHILS # (AUTO) 3.69 x10^3/uL (1.8-6.8); NEUTROPHILS % (AUTO) 48 % (42-75); PLATELET COUNT 473 x10^3/uL (130-400); RED BLOOD COUNT 3.85 x10^6/uL (3.82-5.3); RED CELL DISTRIBUTION WIDTH 14.9 % (9.6-15.2)
[2018-05-05 05:34] LABS: HCT (SEDRATE) 32.1 % (34.6-47.8)
[2018-05-05 05:36] LABS: CHLORIDE 99 mmol/L (98-107)
[2018-05-05 05:49] LABS: ALANINE AMINOTRANSFERASE 19 U/L (12-78); ALBUMIN 2.7 g/dL (3.4-5.0); ALKALINE PHOSPHATASE 98 U/L (45-117); ANION GAP 8 mmol/L (5-15); BILIRUBIN,TOTAL 0.2 mg/dL (0.2-1.0); CALCIUM 9.3 mg/dL (8.5-10.1); CREATININE 0.63 mg/dL (0.55-1.02); TOTAL PROTEIN 8.8 g/dL (6.4-8.2)
[2018-05-05 08:34] VITALS: BP 105/69
[2018-05-05] MEDS: GABAPENTIN 300 MG CAPSULE PO SCH ×3 (08:59→21:23)
[2018-05-05] MEDS: NICOTINE 14MG/24 HR PATCH.TD24 TD SCH (09:00)
[2018-05-05] MEDS: METHADONE 10 MG TABLET PO SCH ×3 (09:00→21:23)
[2018-05-05 12:14] VITALS: BP_SYST 117; BP_SYST 138; BP_DIAS 71; BP_DIAS 74
[2018-05-05] MEDS: CYCLOBENZAPRINE 10 MG TABLET PO PRN (15:39)
[2018-05-05 19:40] VITALS: BP 128/73
[2018-05-06 01:26] VITALS: BP 102/68
[2018-05-06] MEDS: CEFAZOLIN PMX 2GM/50ML 50 ML IV SCH ×3 (01:29→16:54)
[2018-05-06] MEDS: CYCLOBENZAPRINE 10 MG TABLET PO PRN ×3 (01:38→19:50)
[2018-05-06] MEDS: OXYcodone IR 5MG TABLET PO PRN ×3 (01:38→19:50)
[2018-05-06 07:32] VITALS: BP 123/77
[2018-05-06] MEDS: METHOCARBAMOL 750 MG TABLET PO PRN ×2 (09:05→16:46)
[2018-05-06] MEDS: GABAPENTIN 300 MG CAPSULE PO SCH ×3 (09:05→21:27)
[2018-05-06] MEDS: METHADONE 10 MG TABLET PO SCH ×3 (09:05→16:47)
[2018-05-06] MEDS: NICOTINE 14MG/24 HR PATCH.TD24 TD SCH (09:05)
[2018-05-06 12:40] VITALS: BP 130/89
[2018-05-06 19:37] VITALS: BP 115/75
[2018-05-07] MEDS: OXYcodone IR 5MG TABLET PO PRN ×4 (00:01→18:24)
[2018-05-07] MEDS: CEFAZOLIN PMX 2GM/50ML 50 ML IV SCH ×3 (00:01→17:14)
[2018-05-07] MEDS: METHOCARBAMOL 750 MG TABLET PO PRN ×3 (00:01→16:15)
[2018-05-07 01:17] VITALS: BP 129/69
[2018-05-07 07:33] VITALS: BP 95/57
[2018-05-07] MEDS: NICOTINE 14MG/24 HR PATCH.TD24 TD SCH (08:43)
[2018-05-07] MEDS: METHADONE 10 MG TABLET PO SCH ×3 (08:43→20:39)
[2018-05-07] MEDS: GABAPENTIN 300 MG CAPSULE PO SCH ×3 (08:44→20:39)
[2018-05-07 12:54] VITALS: BP 122/85
[2018-05-07] MEDS: CYCLOBENZAPRINE 10 MG TABLET PO PRN ×2 (13:05→22:37)
[2018-05-07 19:10] VITALS: BP 124/75
[2018-05-08] MEDS: CEFAZOLIN PMX 2GM/50ML 50 ML IV SCH ×3 (00:38→18:16)
[2018-05-08 01:14] VITALS: BP 120/70
[2018-05-08 07:36] VITALS: BP 124/64
[2018-05-08] MEDS: METHOCARBAMOL 750 MG TABLET PO PRN (09:06)
[2018-05-08] MEDS: GABAPENTIN 300 MG CAPSULE PO SCH ×3 (09:06→20:49)
[2018-05-08] MEDS: NICOTINE 14MG/24 HR PATCH.TD24 TD SCH (09:06)
[2018-05-08] MEDS: METHADONE 10 MG TABLET PO SCH ×3 (09:06→20:49)
[2018-05-08] MEDS ORDERED: OXYcodone/APAP 5/325MG TABLET ONE (10:38)
[2018-05-08] MEDS: OXYcodone IR 5MG TABLET PO PRN ×2 (10:38→18:15)
[2018-05-08 20:00] VITALS: BP 116/75
[2018-05-09] MEDS: CEFAZOLIN PMX 2GM/50ML 50 ML IV SCH ×3 (00:32→17:13)
[2018-05-09] MEDS: OXYcodone IR 5MG TABLET PO PRN ×4 (00:51→22:11)
[2018-05-09 01:26] VITALS: BP 119/81
[2018-05-09] MEDS: CYCLOBENZAPRINE 10 MG TABLET PO PRN ×2 (04:12→13:47)
[2018-05-09 09:30] VITALS: BP 99/64
[2018-05-09] MEDS: NICOTINE 7 MG/24 HR PATCH.TD24 TD SCH (09:38)
[2018-05-09] MEDS: GABAPENTIN 300 MG CAPSULE PO SCH ×3 (09:39→20:35)
[2018-05-09] MEDS: METHADONE 10 MG TABLET PO SCH ×3 (09:39→20:36)
[2018-05-09] MEDS: METHOCARBAMOL 750 MG TABLET PO PRN ×3 (09:39→20:36)
[2018-05-09 15:05] VITALS: BP 100/63
[2018-05-09 19:55] VITALS: BP 101/64
[2018-05-10] MEDS: CEFAZOLIN PMX 2GM/50ML 50 ML IV SCH ×3 (00:59→17:27)
[2018-05-10 01:12] VITALS: BP 117/76
[2018-05-10] MEDS: OXYcodone IR 5MG TABLET PO PRN ×3 (06:20→22:18)
[2018-05-10 07:24] VITALS: BP 117/75
[2018-05-10] MEDS: NICOTINE 7 MG/24 HR PATCH.TD24 TD SCH (09:17)
[2018-05-10] MEDS: METHADONE 10 MG TABLET PO SCH ×3 (09:18→20:22)
[2018-05-10] MEDS: GABAPENTIN 300 MG CAPSULE PO SCH ×3 (09:18→20:22)
[2018-05-10] MEDS: METHOCARBAMOL 750 MG TABLET PO PRN ×2 (09:18→20:32)
[2018-05-10 13:58] VITALS: BP 124/80
[2018-05-10 19:16] VITALS: BP 123/78
[2018-05-11] MEDS: CEFAZOLIN 2,000 MG in SODIUM CHLORIDE 0.9% 50 ML IVPB SCH ×3 (01:07→17:45)
[2018-05-11 01:34] VITALS: BP 131/74
[2018-05-11] MEDS: CYCLOBENZAPRINE 10 MG TABLET PO PRN ×3 (02:59→19:11)
[2018-05-11] MEDS: OXYcodone IR 5MG TABLET PO PRN ×4 (04:32→20:10)
[2018-05-11 08:48] VITALS: BP 118/76
[2018-05-11] MEDS ORDERED: CEFAZOLIN 2,000 MG in SODIUM CHLORIDE 0.9% 50 ML IVPB SCH ×2 (09:00)
[2018-05-11] MEDS: GABAPENTIN 300 MG CAPSULE PO SCH ×3 (09:58→21:40)
[2018-05-11] MEDS: METHADONE 10 MG TABLET PO SCH ×2 (09:58→21:40)
[2018-05-11] MEDS: NICOTINE 7 MG/24 HR PATCH.TD24 TD SCH (09:59)
[2018-05-11 14:58] VITALS: BP 97/61
[2018-05-11] MEDS: METHOCARBAMOL 500 MG TABLET PO PRN (16:07)
[2018-05-11 18:30] VITALS: BP 108/72
[2018-05-11] MEDS: IBUPROFEN 200 MG TABLET PO PRN (19:11)
[2018-05-12] MEDS: CEFAZOLIN 2,000 MG in SODIUM CHLORIDE 0.9% 50 ML IVPB SCH ×3 (01:04→17:29)
[2018-05-12 01:05] VITALS: BP 115/70
[2018-05-12] MEDS: OXYcodone IR 5MG TABLET PO PRN ×5 (01:10→21:13)
[2018-05-12 06:15] LABS: BASOPHILS # (AUTO) 0.06 x10^3/uL (0-0.1); BASOPHILS % (AUTO) 1 % (0-1); EOSINOPHILS # (AUTO) 0.45 x10^3/uL (0-0.4); EOSINOPHILS % (AUTO) 7 % (1-7); LYMPHOCYTES # (AUTO) 2.96 x10^3/uL (1-3.4); LYMPHOCYTES % (AUTO) 42 % (22-44); MD NO; MEAN CORPUSCULAR HEMOGLOBIN 27.6 pg (27.0-34.8); MEAN CORPUSCULAR HGB CONC 33.2 g/dL (32.4-35.8); MEAN CORPUSCULAR VOLUME 83.2 fL (80-100); MEAN PLATELET VOLUME 6.8 fL (7.4-10.4); MONOCYTES # (AUTO) 0.64 x10^3/uL (0.2-0.8); MONOCYTES % (AUTO) 9 % (2-9); NEUTROPHILS % (AUTO) 41 % (42-75); PLATELET COUNT 386 x10^3/uL (130-400); RED BLOOD COUNT 3.96 x10^6/uL (3.82-5.3); RED CELL DISTRIBUTION WIDTH 15.6 % (9.6-15.2)
[2018-05-12 06:16] LABS: HCT (SEDRATE) 32.3 % (34.6-47.8)
[2018-05-12 06:25] LABS: CHLORIDE 101 mmol/L (98-107)
[2018-05-12 06:35] LABS: ALANINE AMINOTRANSFERASE 22 U/L (12-78); ALBUMIN 2.7 g/dL (3.4-5.0); ALKALINE PHOSPHATASE 97 U/L (45-117); ANION GAP 8 mmol/L (5-15); BILIRUBIN,TOTAL 0.3 mg/dL (0.2-1.0); CREATININE 0.75 mg/dL (0.55-1.02); TOTAL PROTEIN 8.6 g/dL (6.4-8.2)
[2018-05-12 07:38] VITALS: BP 106/72
[2018-05-12] MEDS: IBUPROFEN 200 MG TABLET PO PRN ×3 (09:48→23:41)
[2018-05-12] MEDS: METHADONE 10 MG TABLET PO SCH ×2 (09:48→21:11)
[2018-05-12] MEDS: NICOTINE 7 MG/24 HR PATCH.TD24 TD SCH (09:49)
[2018-05-12] MEDS: CYCLOBENZAPRINE 10 MG TABLET PO PRN ×2 (09:49→23:41)
[2018-05-12] MEDS: GABAPENTIN 300 MG CAPSULE PO SCH ×3 (09:49→21:11)
[2018-05-12 14:32] VITALS: BP 98/62
[2018-05-12] MEDS: METHOCARBAMOL 500 MG TABLET PO PRN (17:28)
[2018-05-12 18:50] VITALS: BP 99/58
[2018-05-13] MEDS: CEFAZOLIN 2,000 MG in SODIUM CHLORIDE 0.9% 50 ML IVPB SCH ×3 (01:11→16:25)
[2018-05-13] MEDS: OXYcodone IR 5MG TABLET PO PRN ×6 (01:21→23:59)
[2018-05-13 01:24] VITALS: BP 105/70
[2018-05-13] MEDS: GABAPENTIN 300 MG CAPSULE PO SCH ×3 (08:35→21:14)
[2018-05-13] MEDS: METHADONE 10 MG TABLET PO SCH ×3 (08:35→21:14)
[2018-05-13] MEDS: NICOTINE 7 MG/24 HR PATCH.TD24 TD SCH (08:39)
[2018-05-13 08:40] VITALS: BP 102/67
[2018-05-13] MEDS: METHOCARBAMOL 500 MG TABLET PO PRN (12:32)
[2018-05-13 14:59] VITALS: BP 98/63
[2018-05-13] MEDS: CYCLOBENZAPRINE 10 MG TABLET PO PRN (16:23)
[2018-05-13 18:34] VITALS: BP 104/64
[2018-05-14 00:07] VITALS: BP 109/66
[2018-05-14] MEDS: CEFAZOLIN 2,000 MG in SODIUM CHLORIDE 0.9% 50 ML IVPB SCH ×3 (00:51→17:35)
[2018-05-14] MEDS: OXYcodone IR 5MG TABLET PO PRN ×5 (05:05→23:03)
[2018-05-14 07:22] VITALS: BP 108/62
[2018-05-14] MEDS: NICOTINE 7 MG/24 HR PATCH.TD24 TD SCH (08:56)
[2018-05-14] MEDS: GABAPENTIN 300 MG CAPSULE PO SCH ×3 (08:56→20:57)
[2018-05-14] MEDS: METHADONE 10 MG TABLET PO SCH ×3 (08:56→20:57)
[2018-05-14] MEDS: CYCLOBENZAPRINE 10 MG TABLET PO PRN (12:51)
[2018-05-14 14:06] VITALS: BP 106/72
[2018-05-14] MEDS: METHOCARBAMOL 500 MG TABLET PO PRN (17:35)
[2018-05-14 18:34] VITALS: BP 102/66
[2018-05-15] MEDS: CEFAZOLIN 2,000 MG in SODIUM CHLORIDE 0.9% 50 ML IVPB SCH ×3 (00:24→18:40)
[2018-05-15 01:06] VITALS: BP 96/61
[2018-05-15] MEDS: OXYcodone IR 5MG TABLET PO PRN ×4 (05:33→18:40)
[2018-05-15 08:30] VITALS: BP 123/79
[2018-05-15] MEDS: GABAPENTIN 300 MG CAPSULE PO SCH ×3 (09:44→20:45)
[2018-05-15] MEDS: METHADONE 10 MG TABLET PO SCH ×3 (09:44→20:45)
[2018-05-15] MEDS: NICOTINE 7 MG/24 HR PATCH.TD24 TD SCH (09:44)
[2018-05-15] MEDS: CYCLOBENZAPRINE 10 MG TABLET PO PRN ×2 (09:44→18:07)
[2018-05-15 15:00] VITALS: BP 111/70
[2018-05-15 18:30] VITALS: BP 102/62
[2018-05-16 00:04] VITALS: BP 106/61
[2018-05-16] MEDS: CEFAZOLIN 2,000 MG in SODIUM CHLORIDE 0.9% 50 ML IVPB SCH ×3 (00:55→17:19)
[2018-05-16] MEDS: METHOCARBAMOL 500 MG TABLET PO PRN ×2 (01:01→09:39)
[2018-05-16] MEDS: OXYcodone IR 5MG TABLET PO PRN ×5 (02:49→22:26)
[2018-05-16] MEDS: CYCLOBENZAPRINE 10 MG TABLET PO PRN (04:27)
[2018-05-16 07:40] VITALS: BP 122/78
[2018-05-16] MEDS: GABAPENTIN 300 MG CAPSULE PO SCH ×3 (09:39→20:51)
[2018-05-16] MEDS: METHADONE 10 MG TABLET PO SCH ×3 (09:40→20:51)
[2018-05-16] MEDS: NICOTINE 7 MG/24 HR PATCH.TD24 TD SCH (09:40)
[2018-05-16 14:00] VITALS: BP 106/61
[2018-05-16 18:35] VITALS: BP 118/70
[2018-05-17] MEDS: CEFAZOLIN 2,000 MG in SODIUM CHLORIDE 0.9% 50 ML IVPB SCH ×3 (00:34→20:08)
[2018-05-17 00:37] VITALS: BP 109/73
[2018-05-17] MEDS: OXYcodone IR 5MG TABLET PO PRN ×4 (05:45→20:09)
[2018-05-17 08:30] VITALS: BP 113/73
[2018-05-17] MEDS: METHOCARBAMOL 500 MG TABLET PO PRN ×2 (09:16→20:08)
[2018-05-17] MEDS: METHADONE 10 MG TABLET PO SCH ×3 (09:17→20:08)
[2018-05-17] MEDS: NICOTINE 7 MG/24 HR PATCH.TD24 TD SCH (09:17)
[2018-05-17] MEDS: GABAPENTIN 300 MG CAPSULE PO SCH ×3 (09:17→20:08)
[2018-05-17 13:15] VITALS: BP 128/83
[2018-05-17] MEDS: IBUPROFEN 200 MG TABLET PO PRN (14:54)
[2018-05-17] MEDS: CYCLOBENZAPRINE 10 MG TABLET PO PRN (16:06)
[2018-05-17 20:45] VITALS: BP 123/73
[2018-05-18 01:18] VITALS: BP 102/61
[2018-05-18] MEDS: OXYcodone IR 5MG TABLET PO PRN ×4 (01:39→17:06)
[2018-05-18] MEDS: CYCLOBENZAPRINE 10 MG TABLET PO PRN ×2 (02:18→17:06)
[2018-05-18] MEDS: IBUPROFEN 200 MG TABLET PO PRN ×2 (02:18→20:34)
[2018-05-18] MEDS: METHOCARBAMOL 500 MG TABLET PO PRN ×2 (04:19→20:34)
[2018-05-18] MEDS: CEFAZOLIN 2,000 MG in SODIUM CHLORIDE 0.9% 50 ML IVPB SCH ×3 (04:19→20:33)
[2018-05-18 08:14] VITALS: BP 102/67
[2018-05-18] MEDS: GABAPENTIN 300 MG CAPSULE PO SCH ×3 (09:49→20:34)
[2018-05-18] MEDS: METHADONE 10 MG TABLET PO SCH ×3 (09:49→20:34)
[2018-05-18] MEDS: NICOTINE 7 MG/24 HR PATCH.TD24 TD SCH (09:49)
[2018-05-18 14:00] VITALS: BP 112/71
[2018-05-18 20:00] VITALS: BP 103/65
[2018-05-19 01:48] VITALS: BP 105/65
[2018-05-19] MEDS: OXYcodone IR 5MG TABLET PO PRN ×3 (04:20→16:59)
[2018-05-19] MEDS: CYCLOBENZAPRINE 10 MG TABLET PO PRN ×2 (04:20→13:25)
[2018-05-19] MEDS: CEFAZOLIN 2,000 MG in SODIUM CHLORIDE 0.9% 50 ML IVPB SCH ×3 (04:22→21:05)
[2018-05-19 06:03] LABS: BASOPHILS # (AUTO) 0.05 x10^3/uL (0-0.1); BASOPHILS % (AUTO) 1 % (0-1); EOSINOPHILS # (AUTO) 0.79 x10^3/uL (0-0.4); EOSINOPHILS % (AUTO) 12 % (1-7); LYMPHOCYTES # (AUTO) 2.51 x10^3/uL (1-3.4); LYMPHOCYTES % (AUTO) 39 % (22-44); MD NO; MEAN CORPUSCULAR HEMOGLOBIN 27.5 pg (27.0-34.8); MEAN CORPUSCULAR HGB CONC 33.4 g/dL (32.4-35.8); MEAN CORPUSCULAR VOLUME 82.1 fL (80-100); MEAN PLATELET VOLUME 7.1 fL (7.4-10.4); MONOCYTES # (AUTO) 0.71 x10^3/uL (0.2-0.8); MONOCYTES % (AUTO) 11 % (2-9); NEUTROPHILS # (AUTO) 2.42 x10^3/uL (1.8-6.8); NEUTROPHILS % (AUTO) 37 % (42-75); PLATELET COUNT 312 x10^3/uL (130-400); RED BLOOD COUNT 3.93 x10^6/uL (3.82-5.3); RED CELL DISTRIBUTION WIDTH 15.8 % (9.6-15.2)
[2018-05-19 06:06] LABS: HCT (SEDRATE) 33.2 % (34.6-47.8)
[2018-05-19 07:20] LABS: ALBUMIN 2.8 g/dL (3.4-5.0); ANION GAP 11 mmol/L (5-15); CALCIUM 8.7 mg/dL (8.5-10.1); CHLORIDE 103 mmol/L (98-107)
[2018-05-19 07:22] LABS: ALANINE AMINOTRANSFERASE 20 U/L (12-78); ALKALINE PHOSPHATASE 84 U/L (45-117); BILIRUBIN,TOTAL 0.2 mg/dL (0.2-1.0); C-REACTIVE PROTEIN, QUANT 0.91 mg/dL (0.02-0.49); CREATININE 0.78 mg/dL (0.55-1.02)
[2018-05-19 07:25] VITALS: BP 124/74
[2018-05-19] MEDS: NICOTINE 7 MG/24 HR PATCH.TD24 TD SCH (07:49)
[2018-05-19] MEDS: METHOCARBAMOL 500 MG TABLET PO PRN ×2 (07:50→21:58)
[2018-05-19] MEDS: METHADONE 10 MG TABLET PO SCH ×3 (07:50→21:06)
[2018-05-19] MEDS: GABAPENTIN 300 MG CAPSULE PO SCH ×3 (07:50→21:06)
[2018-05-19 14:25] VITALS: BP 101/62
[2018-05-19 19:13] VITALS: BP 106/68
[2018-05-20 01:39] VITALS: BP 108/71
[2018-05-20] MEDS: OXYcodone IR 5MG TABLET PO PRN ×3 (03:47→17:39)
[2018-05-20] MEDS: CEFAZOLIN 2,000 MG in SODIUM CHLORIDE 0.9% 50 ML IVPB SCH ×3 (03:48→20:45)
[2018-05-20] MEDS: NICOTINE 7 MG/24 HR PATCH.TD24 TD SCH (08:15)
[2018-05-20] MEDS: GABAPENTIN 300 MG CAPSULE PO SCH ×3 (08:15→20:45)
[2018-05-20] MEDS: METHADONE 10 MG TABLET PO SCH ×3 (08:16→20:45)
[2018-05-20] MEDS: CYCLOBENZAPRINE 10 MG TABLET PO PRN (08:16)
[2018-05-20 08:50] VITALS: BP 124/70
[2018-05-20 12:20] VITALS: BP 145/47
[2018-05-20 13:59] VITALS: BP 111/74
[2018-05-20 19:15] VITALS: BP 93/49
[2018-05-21] MEDS: OXYcodone IR 5MG TABLET PO PRN ×4 (00:39→18:31)
[2018-05-21 01:20] VITALS: BP 129/76
[2018-05-21] MEDS: CEFAZOLIN 2,000 MG in SODIUM CHLORIDE 0.9% 50 ML IVPB SCH ×3 (03:28→21:00)
[2018-05-21 07:58] VITALS: BP 110/74
[2018-05-21] MEDS: NICOTINE 7 MG/24 HR PATCH.TD24 TD SCH (08:35)
[2018-05-21] MEDS: GABAPENTIN 300 MG CAPSULE PO SCH ×3 (08:35→21:16)
[2018-05-21] MEDS: METHADONE 10 MG TABLET PO SCH ×3 (08:35→21:16)
[2018-05-21] MEDS: CYCLOBENZAPRINE 10 MG TABLET PO PRN (10:52)
[2018-05-21] MEDS: METHOCARBAMOL 500 MG TABLET PO PRN (14:00)
[2018-05-21 14:55] VITALS: BP 103/63
[2018-05-21 18:37] VITALS: BP 131/76
[2018-05-22 01:23] VITALS: BP 123/75
[2018-05-22] MEDS: OXYcodone IR 5MG TABLET PO PRN ×4 (01:42→22:48)
[2018-05-22] MEDS: METHOCARBAMOL 500 MG TABLET PO PRN ×3 (01:42→22:49)
[2018-05-22] MEDS: CYCLOBENZAPRINE 10 MG TABLET PO PRN ×2 (05:22→21:23)
[2018-05-22] MEDS: CEFAZOLIN 2,000 MG in SODIUM CHLORIDE 0.9% 50 ML IVPB SCH ×3 (05:22→21:23)
[2018-05-22 05:37] LABS: BASOPHILS # (AUTO) 0.04 x10^3/uL (0-0.1); BASOPHILS % (AUTO) 1 % (0-1); EOSINOPHILS # (AUTO) 0.82 x10^3/uL (0-0.4); EOSINOPHILS % (AUTO) 12 % (1-7); LYMPHOCYTES # (AUTO) 2.75 x10^3/uL (1-3.4); LYMPHOCYTES % (AUTO) 41 % (22-44); MD NO; MEAN CORPUSCULAR HEMOGLOBIN 27.2 pg (27.0-34.8); MEAN CORPUSCULAR HGB CONC 32.7 g/dL (32.4-35.8); MEAN CORPUSCULAR VOLUME 83.1 fL (80-100); MEAN PLATELET VOLUME 6.8 fL (7.4-10.4); MONOCYTES # (AUTO) 0.59 x10^3/uL (0.2-0.8); MONOCYTES % (AUTO) 9 % (2-9); NEUTROPHILS # (AUTO) 2.47 x10^3/uL (1.8-6.8); NEUTROPHILS % (AUTO) 37 % (42-75); PLATELET COUNT 329 x10^3/uL (130-400); RED BLOOD COUNT 4.18 x10^6/uL (3.82-5.3)
[2018-05-22 05:45] LABS: ALBUMIN 3.1 g/dL (3.4-5.0); ANION GAP 6 mmol/L (5-15); CALCIUM 8.5 mg/dL (8.5-10.1); CHLORIDE 103 mmol/L (98-107); CREATININE 0.56 mg/dL (0.55-1.02)
[2018-05-22] MEDS: METHADONE 10 MG TABLET PO SCH ×3 (08:28→21:26)
[2018-05-22] MEDS: NICOTINE 7 MG/24 HR PATCH.TD24 TD SCH (08:28)
[2018-05-22] MEDS: GABAPENTIN 300 MG CAPSULE PO SCH ×3 (08:28→21:24)
[2018-05-22 09:37] VITALS: BP 104/70
[2018-05-22] MEDS: IBUPROFEN 200 MG TABLET PO PRN (13:48)
[2018-05-22 15:26] VITALS: BP 103/58
[2018-05-22 20:37] VITALS: BP 133/87
[2018-05-23 03:55] VITALS: BP 100/65
[2018-05-23] MEDS: CEFAZOLIN 2,000 MG in SODIUM CHLORIDE 0.9% 50 ML IVPB SCH ×2 (04:59→13:00)
[2018-05-23] MEDS: OXYcodone IR 5MG TABLET PO PRN ×2 (05:00→11:12)
[2018-05-23] MEDS: CYCLOBENZAPRINE 10 MG TABLET PO PRN (05:00)
[2018-05-23] MEDS: GABAPENTIN 300 MG CAPSULE PO SCH (08:57)
[2018-05-23] MEDS: METHADONE 10 MG TABLET PO SCH (08:57)
[2018-05-23] MEDS: NICOTINE 7 MG/24 HR PATCH.TD24 TD SCH (08:57)
[2018-05-23] MEDS: METHOCARBAMOL 500 MG TABLET PO PRN (09:02)
[2018-05-23 09:50] VITALS: BP 142/98
[2018-05-23] MEDS ORDERED: GABA300C10 PO (12:25)
[2018-05-23] MEDS ORDERED: OXYC5TAB3 PO (12:25)
[2018-05-23] MEDS ORDERED: METH-356 PO (12:25)
[2018-05-23] MEDS ORDERED: CEPH-368 PO (12:25)
== END 2018-05-23 14:00 | disposition home or self-care (01) | DRG 853 ==
LOC: ED 23:18 → EDIP 04-12 02:05 → CCU 04-12 05:33 → 3NW 04-14 10:37 → 3NE 04-14 22:26
PROVIDERS: ADMIT Hospitalist; ATTEND Family Medicine
PROC: 0PB40ZZ Excision of Thoracic Vertebra, Open Approach (ICD-10-PCS; 2018-04-12)
PROC: 0H9BXZZ Drainage of Right Upper Arm Skin, External Approach (ICD-10-PCS; principal; 2018-04-12 08:30)
PROC: 0Y9M0ZZ Drainage of Right Foot, Open Approach (ICD-10-PCS; 2018-04-18)
DX: A41.01 Sepsis due to Methicillin susceptible Staphylococcus aureus (principal); E43 Unspecified severe protein-calorie malnutrition; G06.2 Extradural and subdural abscess, unspecified; J85.2 Abscess of lung without pneumonia; G06.1 Intraspinal abscess and granuloma; L02.413 Cutaneous abscess of right upper limb; L03.115 Cellulitis of right lower limb; L02.212 Cutaneous abscess of back [any part, except buttock and flank]; Z68.1 Body mass index [BMI] 19.9 or less, adult; I38 Endocarditis, valve unspecified; D64.9 Anemia, unspecified; M41.9 Scoliosis, unspecified; D64.89 Other specified anemias; F11.10 Opioid abuse, uncomplicated; F15.10 Other stimulant abuse, uncomplicated; G47.00 Insomnia, unspecified; K59.00 Constipation, unspecified; M76.60 Achilles tendinitis, unspecified leg; F17.210 Nicotine dependence, cigarettes, uncomplicated; S99.911A Unspecified injury of right ankle, initial encounter; X50.1XXA Overexertion from prolonged static or awkward postures, initial encounter; Z59.0 Homelessness; Y93.89 Activity, other specified; Z88.5 Allergy status to narcotic agent; Z88.8 Allergy status to other drugs, medicaments and biological substances; Y92.89 Other specified places as the place of occurrence of the external cause; Y99.8 Other external cause status; Z86.61 Personal history of infections of the central nervous system
CPT/HCPCS: 36415; 72072; 72129; 72132; 72156; 72157; 72158; 80048; 80053; 80074; 80307; 81001; 81025; 82040; 83605; 83735; 84100; 84145; 85025; 85651; 86140; 87040; 87070; 87075; 87077; 87081; 87086; 87147; 87186; 87205; 87806; 93306; 96365; 96366; 96368; 96375; 96376; 97163; 97164; 99291; A9585; G0378; J0690; J1170; J1644; J1885; J2175; J2250; J2543; J2704; J3010; J3370; G0475; J0330; J1030; J2370; J7030; J7050; Q0177; Q9968

== ENCOUNTER 2019-09-07 14:51 | Emergency (ER) | payer MEDICAID ==
[~2019-09-07] VITALS: Ht 175.3 cm; Wt 63.0 kg
[~2019-09-07 14:51] MED LIST: AMOX-291 PO; CEPH-368 PO; DULO60CA56 PO; GABA300C10 PO; IBUP-1222 PO; METH10TA2 PO; OLAN10TA7 PO; OXYC5TAB3 PO; SULF-16 PO
[2019-09-07 15:42] VITALS: BP 118/90
--- NOTE | 2019-09-07 15:50 | NUR ---
FROM LOBBY TO ROOM AT THIS TIME
[2019-09-07] MEDS ORDERED: DEXAMETHASONE 4 MG TABLET PO ONE (16:00)
[2019-09-07] MEDS ORDERED: DEXAMETHASONE 4 MG TABLET ONE (16:07)
--- NOTE | 2019-09-07 16:09 | NUR ---
PT MEDICATED PER ORDERS.
--- NOTE | 2019-09-07 16:09 | NUR ---
Patient/Caregiver given discharge instructions and they have confirmed that they understand the instructions. Patient ambulatory with steady gait.
== END 2019-09-07 16:12 | disposition home or self-care (01) ==
LOC: ED 16:00
DX: J00 Acute nasopharyngitis [common cold] (principal); B34.9 Viral infection, unspecified
CPT/HCPCS: 87081; 87880; 99283

== ENCOUNTER 2019-09-23 13:51 | Emergency (ER) | payer MEDICAID ==
[~2019-09-23] VITALS: Ht 175.3 cm; Wt 59.7 kg
[2019-09-23 13:52] VITALS: BP 113/75
== END 2019-09-23 14:37 | disposition home or self-care (01) ==
LOC: ED 14:30
DX: L20.84 Intrinsic (allergic) eczema (principal)
CPT/HCPCS: 99282

== ENCOUNTER 2020-10-11 12:23 | Emergency (ER) | payer MEDICAID ==
[~2020-10-11] VITALS: Ht 175.3 cm; Wt 62.8 kg
[~2020-10-11 12:23] MED LIST changes: -OXYC5TAB3 PO; +OXYC5TAB98 PO
[2020-10-11 12:46] VITALS: BP 120/87
== END 2020-10-11 14:23 | disposition home or self-care (01) ==
LOC: ED 13:34
DX: S52.031A Displaced fracture of olecranon process with intraarticular extension of right ulna, initial encounter for closed fracture (principal); M25.511 Pain in right shoulder; Y04.8XXA Assault by other bodily force, initial encounter; Y93.89 Activity, other specified; Y92.89 Other specified places as the place of occurrence of the external cause; Y99.8 Other external cause status
CPT/HCPCS: 99284

== ENCOUNTER 2020-10-22 16:22 | Emergency (ER) | payer MEDICAID ==
[~2020-10-22] VITALS: Ht 175.3 cm; Wt 60.0 kg
--- NOTE | 2020-10-22 17:46 | NUR ---
CAR COOPER AT BEDSIDE
[2020-10-22] MEDS ORDERED: QUETIAPINE 25MG TABLET ONE ×2 (18:16→19:51)
--- NOTE | 2020-10-22 18:23 | NUR ---
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
[2020-10-22] MEDS ORDERED: QUETIAPINE 25MG TABLET PO SCH (18:30)
[2020-10-22] MEDS ORDERED: QUETIAPINE 25MG TABLET PO ONE ×2 (18:30→20:00)
--- NOTE | 2020-10-22 18:56 | NUR ---
REPORT TO DIONNE RAMIREZ
[2020-10-22 19:01] VITALS: BP 122/70
--- NOTE | 2020-10-22 19:02 | NUR ---
PT SITTING UPRIGHT ON [facility]EW[facility] VSS. PT SPEAKING WITH LAYTON ANNE APRN. PT DENIES ANY NEEDS AT THIS TIME.
--- NOTE | 2020-10-22 19:04 | NUR ---
BEDSIDE REPORT FROM MIRNA RAMIREZ
[2020-10-22 19:05] LABS: AMPHETAMINE SCREEN, URINE Positive (Negative); BARBITURATE SCREEN, URINE Negative (Negative); BENZODIAZEPINE SCREEN, URINE Negative (Negative); CANNABINOID SCREEN, URINE Negative (Negative); COCAINE SCREEN, URINE Negative (Negative); METHADONE SCREEN, URINE Negative (Negative); OPIATE SCREEN, URINE Negative (Negative)
--- NOTE | 2020-10-22 20:00 | NUR ---
PT PROVIDED APPROPRIATE RESOURCES FOR FOLLOW UP BY METROLOGY SPECIALIST SANKET AND PSYCH BARBER ANNE.
--- NOTE | 2020-10-22 20:06 | NUR ---
Patient given discharge instructions and they have confirmed that they understand the instructions. Patient ambulatory with steady gait. Pt verbalized understanding of follow up and medication use.
== END 2020-10-22 20:10 | disposition home or self-care (01) ==
LOC: ED 20:08
DX: F15.10 Other stimulant abuse, uncomplicated (principal); F23 Brief psychotic disorder; Z88.8 Allergy status to other drugs, medicaments and biological substances; F17.200 Nicotine dependence, unspecified, uncomplicated
CPT/HCPCS: 80307; 99283

== ENCOUNTER 2020-11-23 09:34 | Observation (INO) | payer MEDICAID ==
[~2020-11-23] VITALS: Ht 175.3 cm; Wt 60.2 kg
[~2020-11-23 09:34] MED LIST changes: +CEFAZOLIN 1,000 MG ONE; +DEXAMETHASONE 4 MG/ML, 1ML ONE; +FENTANYL PF 250 MCG/5ML ONE; +GLYCOPYRROLATE 0.2MG/1ML, 5ML ONE; +MIDAZOLAM 1 MG/ML, 2ML ONE; +NEOSTIGMINE 1 MG/ML, 10ML ONE; +ONDANSETRON 2MG/ML, 2ML ONE; +PROPOFOL 10 MG/ML, 20ML ONE; +ROCURONIUM 10MG/ML,5ML ONE
[2020-11-23] MEDS ORDERED: BUPIVACAINE/PF 0.25% ONE (09:35)
[2020-11-23] MEDS ORDERED: HALOPERIDOL 5 MG/ML IV PRN (10:00)
[2020-11-23] MEDS ORDERED: LABETALOL 5MG/ML, 20ML IV PRN (10:00)
[2020-11-23] MEDS ORDERED: MEPERIDINE/PF 25MG/0.5ML IVPush PRN (10:00)
[2020-11-23] MEDS ORDERED: FENTANYL PF 100 MCG/2ML IV PRN (10:00)
[2020-11-23] MEDS ORDERED: OXYcodone 5 MG/5 ML ORAL.SOL UDC PO PRN ×2 (10:00→11:00)
[2020-11-23] MEDS ORDERED: PROMETHAZINE 25 MG/ML, 1ML IVPush PRN (10:00)
[2020-11-23] MEDS ORDERED: hydrALAzine 20 MG/ML, 1ML IV PRN (10:00)
[2020-11-23] MEDS ORDERED: ACETAMINOPHEN 325 MG TABLET PO PRN (10:00)
[2020-11-23] MEDS ORDERED: CHLORHEXIDINE 15 ML UDC ONE (10:07)
[2020-11-23 10:08] VITALS: BP 115/85
[2020-11-23] MEDS ORDERED: NO MEDS PER PT (10:28)
[2020-11-23] MEDS ORDERED: PLEASE ENTER HEIGHT AND WEIGHT MC SCH (10:30)
[2020-11-23] MEDS ORDERED: CHLORHEXIDINE 15 ML UDC PO ONE (10:30)
[2020-11-23] MEDS: LACTATED RINGERS 1,000 ML IV SCH ×2 (10:32→13:24)
[2020-11-23] MEDS ORDERED: ONDANSETRON 4 MG TABLET PO PRN (11:00)
[2020-11-23] MEDS ORDERED: DIPHENHYDRAMINE 50 MG CAPSULE PO PRN (11:00)
[2020-11-23] MEDS ORDERED: PROMETHAZINE 25 MG/ML, 1ML IM PRN (11:00)
[2020-11-23] MEDS ORDERED: ONDANSETRON 2MG/ML, 2ML IV PRN (11:00)
[2020-11-23] MEDS ORDERED: DIAZEPAM 5 MG TABLET PO PRN (11:00)
[2020-11-23] MEDS ORDERED: BUPIVACAINE/PF 0.5% ONE (11:39)
[2020-11-23] MEDS ORDERED: EPINEPHRINE 1 MG/ML, 1ML ONE (11:40)
[2020-11-23] MEDS ORDERED: ACETAMINOPHEN 650 MG/20.3 ML UDC ONE (12:09)
[2020-11-23] MEDS ORDERED: MEPERIDINE/PF 25MG/ML,1ML ONE (12:09)
[2020-11-23] MEDS ORDERED: OXYcodone 5 MG/5 ML ORAL.SOL UDC ONE (12:09)
[2020-11-23] MEDS ORDERED: DIAZEPAM 5 MG TABLET ONE (12:10)
[2020-11-23] MEDS ORDERED: KETOROLAC 30 MG/1 ML ONE (12:56)
[2020-11-23] MEDS ORDERED: LORazepam 0.5MG TABLET PO PRN (13:00)
[2020-11-23] MEDS ORDERED: LORazepam 1MG TABLET PO PRN ×4 (13:00)
[2020-11-23] MEDS: KETOROLAC 30 MG/1 ML IV SCH ×2 (13:10→22:37)
[2020-11-23] MEDS ORDERED: HYDROmorphone 1 MG/ML, 1ML INJ ONE (13:13)
[2020-11-23] MEDS: HYDROmorphone 1 MG/ML, 1ML INJ IVPush PRN ×4 (13:18→13:23)
[2020-11-23] MEDS: HYDROcodone/APAP 5/325 TABLET PO PRN (18:00)
[2020-11-23] MEDS: CEFAZOLIN PMX 1GM/50ML 50 ML IVPB SCH (18:28)
[2020-11-23 19:15] VITALS: BP 98/61
[2020-11-23] MEDS: DOCUSATE 100 MG CAPSULE PO SCH (22:37)
[2020-11-23 23:17] VITALS: BP 105/65
[2020-11-24] MEDS: CEFAZOLIN PMX 1GM/50ML 50 ML IVPB SCH (02:30)
[2020-11-24 03:18] VITALS: BP 105/68
[2020-11-24] MEDS ORDERED: ASPIRIN 81 MG TABLET EC PO SCH (06:00)
[2020-11-24] MEDS: KETOROLAC 30 MG/1 ML IV SCH (06:23)
[2020-11-24 06:30] VITALS: BP 112/71
[2020-11-24] MEDS: HYDROcodone/APAP 5/325 TABLET PO PRN (10:44)
[2020-11-24] MEDS: DOCUSATE 100 MG CAPSULE PO SCH (10:44)
[2020-11-24] MEDS ORDERED: OXYC5CAP2 PO (12:56)
[2020-11-24 13:20] VITALS: BP 109/67
[2020-11-24] MEDS ORDERED: HYDROcodone/APAP 5/325 TABLET PO ONE (16:30)
[2020-11-24] MEDS ORDERED: KETOROLAC 30 MG/1 ML IVPush ONE (16:30)
== END 2020-11-24 16:49 | disposition home or self-care (01) ==
LOC: OUT 09:34 → ORIP 10:47 → 4NE 14:05 → DCLOUNGE 11-24 16:43
PROVIDERS: ADMIT Orthopaedic Surgery; ATTEND Orthopaedic Surgery
DX: S52.021K Displaced fracture of olecranon process without intraarticular extension of right ulna, subsequent encounter for closed fracture with nonunion (principal); Z20.822 Contact with and (suspected) exposure to COVID-19; X58.XXXA Exposure to other specified factors, initial encounter; Y93.89 Activity, other specified; Y92.89 Other specified places as the place of occurrence of the external cause
CPT/HCPCS: 24685; 73070; 81025; 87635; 96365; 96366; 96375; 96376; C1713; G0378; J0171; J0690; J1100; J1170; J1885; J2175; J2250; J2405; J2704; J2710; J3010; J7120; S0020; 76000

== ENCOUNTER 2021-03-11 14:18 | Inpatient (IN) | payer MEDICAID ==
[~2021-03-11] VITALS: Ht 175.3 cm; Wt 56.8 kg
[~2021-03-11 14:18] MED LIST changes: -CEFAZOLIN 1,000 MG ONE; -DEXAMETHASONE 4 MG/ML, 1ML ONE; -FENTANYL PF 250 MCG/5ML ONE; -GLYCOPYRROLATE 0.2MG/1ML, 5ML ONE; -MIDAZOLAM 1 MG/ML, 2ML ONE; -NEOSTIGMINE 1 MG/ML, 10ML ONE; +NO MEDS PER PT; -ONDANSETRON 2MG/ML, 2ML ONE; +OXYC5CAP2 PO; -PROPOFOL 10 MG/ML, 20ML ONE; -ROCURONIUM 10MG/ML,5ML ONE
[2021-03-11] MEDS ORDERED: SODIUM CHLORIDE 0.9% 1,000ML IVBOLUS ONE ×2 (15:30→18:00)
[2021-03-11] MEDS ORDERED: PLEASE ENTER HEIGHT AND WEIGHT MC SCH (15:30)
[2021-03-11 16:01] LABS: MEAN CORPUSCULAR HEMOGLOBIN 25.4 pg (27.0-34.8); MEAN CORPUSCULAR HGB CONC 32.3 g/dL (32.4-35.8); MEAN PLATELET VOLUME 7.5 fL (7.4-10.4); PLATELET COUNT 335 x10^3/uL (130-400); RED BLOOD COUNT 5.14 x10^6/uL (3.82-5.3); RED CELL DISTRIBUTION WIDTH 17.9 % (9.6-15.2)
[2021-03-11 16:12] LABS: ALBUMIN 2.7 g/dL (3.4-5.0); ANION GAP 7 mmol/L (5-15); CALCIUM 9.1 mg/dL (8.5-10.1); CHLORIDE 94 mmol/L (98-107)
[2021-03-11 16:15] LABS: ALANINE AMINOTRANSFERASE 47 U/L (12-78); ALKALINE PHOSPHATASE 122 U/L (45-117); BILIRUBIN,TOTAL 0.7 mg/dL (0.2-1.0); CREATININE 0.68 mg/dL (0.55-1.02); TOTAL PROTEIN 9.2 g/dL (6.4-8.2)
[2021-03-11 16:52] LABS: BANDS%(MANUAL) 14 % (0-7); BASOS#(MANUAL) 0.21 x10^3/uL (0-0.1); BASOS% (MANUAL) 1 % (0-1); LYMPH#(MANUAL) 0.21 x10^3/uL (1-3.4); LYMPHS% (MANUAL) 1 % (22-44); MONOS% (MANUAL) 7 % (2-9); SEG#(MANUAL) 16.48 x10^3/uL (1.8-6.8); SEGS% (MANUAL) 77 % (42-75)
[2021-03-11 16:54] LABS: <PLATELET ESTIMATE> ADEQUATE; <PLT MORPHOLOGY> NORMAL PLT MORPH; HYPOCHROMIA 1+; MICROCYTOSIS 1+
[2021-03-11 16:55] LABS: TOXIC GRAN 1+
--- NOTE | 2021-03-11 17:28 | NUR ---
salesforce business analyst note: Pt to room from lobby.
[2021-03-11] MEDS ORDERED: CEFTRIAXONE 1,000 MG in DEXTROSE 5% 50 ML IVPB ONE (18:00)
[2021-03-11] MEDS ORDERED: AZITHROMYCIN 500 MG in SODIUM CHLORIDE 0.9% 250 ML IV ONE (18:00)
--- NOTE | 2021-03-11 18:02 | NUR ---
PT SITTING UP ON GURNEY, RESPONDS APPROP TO STAFF, COMFORT MEASURES PROVIDED, BF AT BS, CALL LIGHT WITHIN REACH.
[2021-03-11] MEDS ORDERED: KETOROLAC 15 MG/1ML IVPush ONE (19:00)
[2021-03-11] MEDS ORDERED: KETOROLAC 30 MG/1 ML ONE (19:00)
--- NOTE | 2021-03-11 19:01 | NUR ---
PT CONTINUES SITTING UP ON GURNEY AWAKE WITH C/O PAIN- MEDICATED PER MAR, RESPONDS APPROP TO STAFF, NO NEEDS AT THIS TIME, BF AT BS, CALL LIGHT WITHIN REACH.
--- NOTE | 2021-03-11 19:06 | NUR ---
PT TO CTA
[2021-03-11] MEDS ORDERED: ACETAMINOPHEN 325 MG TABLET PO PRN (20:00)
[2021-03-11] MEDS ORDERED: OMNIPAQUE 350 MG/ML, 100ML BOTTLE ONE (20:00)
[2021-03-11] MEDS ORDERED: BISACODYL 10 MG SUPP PR PRN (20:00)
[2021-03-11] MEDS ORDERED: ONDANSETRON 2MG/ML, 2ML IVPush PRN (20:00)
[2021-03-11] MEDS ORDERED: POLYETHYLENE GLYCOL 17 GM PACKET PO PRN (20:00)
--- NOTE | 2021-03-11 20:04 | NUR ---
PT SITTING UP ON GURNEY AWAKE & MORE COMFORTABLE, WATCHING TV, RESPONDS APPROP TO STAFF, NO NEEDS AT THIS TIME, BF AT BS, CALL LIGHT WITHIN REACH.
--- NOTE | 2021-03-11 21:11 | NUR ---
REPORT FROM JEWELL RAMIREZ
--- NOTE | 2021-03-11 21:11 | NUR ---
report given to omar anderson
--- NOTE | 2021-03-11 22:18 | NUR ---
REPORT GIVEN TO GABBY RAMIREZ. PT GIVEN SNACKS
[2021-03-11 22:43] VITALS: BP 121/81
[2021-03-11] MEDS: SODIUM CHLORIDE 0.9% 1,000 ML IV SCH (23:23)
[2021-03-11] MEDS: DOXYCYCLINE 100 MG in DEXTROSE 5% 250 ML IV SCH (23:25)
[2021-03-11] MEDS: HEPARIN 5,000 UNITS/ML, 1ML SQ SCH (23:26)
[2021-03-12] MEDS: LORazepam 1MG TABLET PO PRN ×2 (00:28→09:35)
[2021-03-12] MEDS: NICOTINE 7 MG/24 HR PATCH.TD24 TD SCH ×2 (00:28→23:38)
[2021-03-12 00:58] VITALS: BP 108/68
[2021-03-12] MEDS ORDERED: OXYcodone/APAP 10/325MG TABLET PO ONE (03:00)
[2021-03-12 06:17] LABS: MEAN CORPUSCULAR HEMOGLOBIN 24.8 pg (27.0-34.8); MEAN CORPUSCULAR HGB CONC 31.8 g/dL (32.4-35.8); MEAN PLATELET VOLUME 7.9 fL (7.4-10.4); PLATELET COUNT 299 x10^3/uL (130-400); RED BLOOD COUNT 4.32 x10^6/uL (3.82-5.3); RED CELL DISTRIBUTION WIDTH 17.7 % (9.6-15.2)
[2021-03-12 06:28] LABS: CHLORIDE 103 mmol/L (98-107)
[2021-03-12 06:34] LABS: ALANINE AMINOTRANSFERASE 28 U/L (12-78); ALBUMIN 1.8 g/dL (3.4-5.0); ALKALINE PHOSPHATASE 87 U/L (45-117); BILIRUBIN,TOTAL 0.3 mg/dL (0.2-1.0); CREATININE 0.41 mg/dL (0.55-1.02); TOTAL PROTEIN 6.7 g/dL (6.4-8.2)
[2021-03-12 06:43] LABS: BAND#(MANUAL) 1.74 x10^3/uL; BANDS%(MANUAL) 10 % (0-7); BASOS#(MANUAL) 0.17 x10^3/uL (0-0.1); BASOS% (MANUAL) 1 % (0-1); EOS#(MANUAL) 0.17 x10^3/uL (0.0-0.4); EOS% (MANUAL) 1 % (1-7); LYMPH#(MANUAL) 2.96 x10^3/uL (1-3.4); LYMPHS% (MANUAL) 17 % (22-44); MONOS#(MANUAL) 1.22 x10^3/uL (0.3-2.7); MONOS% (MANUAL) 7 % (2-9); SEG#(MANUAL) 11.14 x10^3/uL (1.8-6.8); SEGS% (MANUAL) 64 % (42-75)
[2021-03-12 06:44] LABS: <PLATELET ESTIMATE> ADEQUATE; <PLT MORPHOLOGY> NORMAL PLT MORPH; ANISOCYTOSIS 1+; MICROCYTOSIS 1+
[2021-03-12 06:52] LABS: ANION GAP 6 mmol/L (5-15)
[2021-03-12 07:26] VITALS: BP 114/73
[2021-03-12] MEDS: HEPARIN 5,000 UNITS/ML, 1ML SQ SCH (07:30)
[2021-03-12] MEDS: SENNA/DOCUSATE TABLET PO SCH (09:00)
[2021-03-12] MEDS: SODIUM CHLORIDE 0.9% 1,000 ML IV SCH ×2 (09:35→18:00)
[2021-03-12] MEDS: DOXYCYCLINE 100 MG in DEXTROSE 5% 250 ML IV SCH (09:45)
[2021-03-12] MEDS ORDERED: DEXAMETHASONE 4 MG/ML, 1ML IVPush SCH (11:00)
[2021-03-12] MEDS ORDERED: AZITHROMYCIN 500 MG in SODIUM CHLORIDE 0.9% 250 ML IV SCH (11:00)
[2021-03-12] MEDS ORDERED: LORazepam 2 MG/ML, 1ML ONE (11:43)
[2021-03-12] MEDS: LORazepam 2 MG/ML, 1ML IVPush PRN (11:47)
[2021-03-12 12:42] VITALS: BP 127/63
[2021-03-12] MEDS ORDERED: HYDROmorphone 2 MG/ML, 1ML ONE ×3 (13:26→23:35)
[2021-03-12] MEDS: HYDROmorphone 1 MG/ML, 1ML INJ IVPush PRN ×3 (13:31→23:39)
[2021-03-12] MEDS ORDERED: ENOXAPARIN 40 MG/0.4 ML SQ SCH (16:00)
[2021-03-12] MEDS ORDERED: CEFTRIAXONE 1,000 MG in DEXTROSE 5% 50 ML IVPB SCH (18:30)
[2021-03-12 19:06] VITALS: BP 112/60
[2021-03-12] MEDS ORDERED: DOXYCYCLINE 100MG TABLET PO SCH (21:00)
[2021-03-13 00:05] VITALS: BP 115/63
[2021-03-13] MEDS: SODIUM CHLORIDE 0.9% 1,000 ML IV SCH ×2 (02:48→10:00)
[2021-03-13] MEDS: LORazepam 2 MG/ML, 1ML IVPush PRN (02:48)
[2021-03-13] MEDS ORDERED: HYDROmorphone 2 MG/ML, 1ML ONE (03:48)
[2021-03-13] MEDS: HYDROmorphone 2 MG/ML, 1ML IVPush PRN ×2 (03:59→09:16)
[2021-03-13 06:40] LABS: BASOPHILS % (AUTO) 0 % (0-1); EOSINOPHILS % (AUTO) 0 % (1-7); LYMPHOCYTES % (AUTO) 25 % (22-44); MEAN CORPUSCULAR HGB CONC 31.9 g/dL (32.4-35.8); MEAN PLATELET VOLUME 7.2 fL (7.4-10.4); MONOCYTES % (AUTO) 5 % (2-9); NEUTROPHILS % (AUTO) 70 % (42-75); PLATELET COUNT 348 x10^3/uL (130-400); RED CELL DISTRIBUTION WIDTH 17.5 % (9.6-15.2)
[2021-03-13 06:49] LABS: ANION GAP 5 mmol/L (5-15); CALCIUM 8.5 mg/dL (8.5-10.1); CHLORIDE 106 mmol/L (98-107)
[2021-03-13 06:51] LABS: CREATININE 0.39 mg/dL (0.55-1.02)
[2021-03-13 07:19] VITALS: BP 149/91
[2021-03-13] MEDS: SENNA/DOCUSATE TABLET PO SCH (09:00)
[2021-03-13] MEDS ORDERED: AZITHROMYCIN 500 MG TABLET PO SCH (09:00)
[2021-03-13] MEDS ORDERED: AZIT500T10 PO (09:10)
[2021-03-13] MEDS ORDERED: AZITHROMYCIN 500 MG TABLET ONE (09:14)
[2021-03-14] MEDS ORDERED: AZITHROMYCIN 500 MG TABLET PO SCH (09:00)
== END 2021-03-13 16:57 | disposition home or self-care (01) | DRG 871 ==
LOC: ED 18:00 → 5SO 19:12 → ED 20:30
PROVIDERS: ADMIT Emergency Medicine; ATTEND Internal Medicine
DX: A41.9 Sepsis, unspecified organism (principal); E43 Unspecified severe protein-calorie malnutrition; J18.9 Pneumonia, unspecified organism; D68.9 Coagulation defect, unspecified; F11.23 Opioid dependence with withdrawal; E87.1 Hypo-osmolality and hyponatremia; E87.2 Acidosis; Z68.1 Body mass index [BMI] 19.9 or less, adult; D63.8 Anemia in other chronic diseases classified elsewhere; D50.9 Iron deficiency anemia, unspecified; F12.90 Cannabis use, unspecified, uncomplicated; Z86.61 Personal history of infections of the central nervous system; M41.9 Scoliosis, unspecified; F17.210 Nicotine dependence, cigarettes, uncomplicated; F14.90 Cocaine use, unspecified, uncomplicated; F15.10 Other stimulant abuse, uncomplicated; G47.00 Insomnia, unspecified; R65.20 Severe sepsis without septic shock; Z20.822 Contact with and (suspected) exposure to COVID-19; Z88.5 Allergy status to narcotic agent
CPT/HCPCS: 36415; 71045; 71275; 80048; 80053; 82728; 83540; 83550; 83605; 84145; 85025; 85379; 87040; 93005; 93970; 96365; 96368; 96375; 99291; G0378; J0456; J0696; J1100; J1170; J1644; J1885; J2405; J7060; Q9967; U0005; J2060; J7030; J7050; U0003